=== PATIENT | female | born 1935 | race American Indian/Alaskan Native ===

== ENCOUNTER 2017-11-21 19:22 | Emergency (ER) | payer MEDICARE ==
--- NOTE | 2017-11-21 20:46 | Emergency Department Report ---
ED Syncope HPI - General Chief Complaint: Syncope Stated Complaint: LOW HEART RATE Time Seen by Provider: 11/21/17 20:21 Source: patient, family Exam Limitations: no limitations - History of Present Illness Initial Comments: Miss Nicole is a 82 years pleasant patient from assisted living, with history of dementia and hypertension in history of renal cancer in 2011 status post surgery. Patient presented to the ER for evaluation of 1 single episode of syncope happened while she was standing at a nursing station in her assisted living facility. Described by her niece that she collapsed for a few seconds in and she went back to her normal. Patient denied any headache or chest pain or shortness of breath but she is complaining of lower abdominal pain that started today after the event. She stated that they went out to eat this evening and she thinks this might be from that patient denied any fever, nausea or vomiting. No diarrhea. Timing/Prior Episodes: single episode today Precipitating Factors: Positive: none Context: standing Loss of Consciousness: brief (seconds) Current Symptoms: back to normal - Related Data Allergies/Adverse Reactions: Allergies No Known Allergies Allergy (Unverified 11/21/17 20:24) Home Medications: Ambulatory Orders Alendronate Sodium [Fosamax] 70 mg PO 1XW 11/21/17 Aspirin EC [Aspirin Enteric Coated TAB] 81 mg PO QDAY 11/21/17 Bismuth Subsalicylate [Pepto-Bismol] 262 mg PO QID 11/21/17 Docusate Sodium [Stool Softener] 100 mg PO BID PRN 11/21/17 Donepezil [Aricept] 10 mg PO QDAY 11/21/17 Fluticasone [Flonase] 1 spray NS QDAY 11/21/17 LORazepam [Ativan] 0.5 mg PO BID PRN 11/21/17 Levocetirizine Dihydrochloride 5 mg PO DAILY 11/21/17 Melatonin 5 mg PO QHS PRN 11/21/17 Naphazoline/Zinc Sulf/Glycerin [Clear Eyes Itchy Eye Rlf Drops] 1 - 2 drop OP QID 11/21/17 OXcarbazepine [Trileptal] 300 mg PO BID 11/21/17 Omeprazole 40 mg PO DAILY 11/21/17 Simvastatin 20 mg PO HS 11/21/17 amLODIPine [Norvasc] 5 mg PO DAILY 11/21/17 risperiDONE [RisperiDONE] 1 mg PO QDAY 11/21/17 ED Review of Systems ROS: Stated complaint: LOW HEART RATE Other details as noted in HPI Comment: All other systems reviewed and negative Constitutional: denies: chills, fever Respiratory: denies: cough, orthopnea, shortness of breath, SOB with exertion, SOB at rest, wheezing Cardiovascular: denies: chest pain, palpitations, dyspnea on exertion Gastrointestinal: abdominal pain. denies: nausea, vomiting, diarrhea, constipation, hematemesis, melena, hematochezia Musculoskeletal: denies: back pain Neurological: denies: headache, weakness, numbness, paresthesias, confusion, abnormal gait ED Past Medical Hx - Past Medical History Previous Medical History?: Yes Hx Hypertension: Yes Additional medical history: Dementia, alzheimers, renal Ca - Surgical History Past Surgical History?: Yes Hx Appendectomy: Yes Additional Surgical History: Kidney removed - Social History Smoking Status: Former Smoker Substance Use Type: None - Medications Home Medications: Home Medications Medication Instructions Recorded Confirmed Last Taken Type Alendronate Sodium [Fosamax] 70 mg PO 1XW 11/21/17 11/21/17 11/21/17 History Aspirin EC [Aspirin Enteric Coated 81 mg PO QDAY 11/21/17 11/21/17 11/21/17 History TAB] Bismuth Subsalicylate 262 mg PO QID 11/21/17 11/21/17 11/21/17 History [Pepto-Bismol] Docusate Sodium [Stool Softener] 100 mg PO BID PRN 11/21/17 11/21/17 Unknown History Donepezil [Aricept] 10 mg PO QDAY 11/21/17 11/21/17 11/21/17 History Fluticasone [Flonase] 1 spray NS QDAY 11/21/17 11/21/17 11/21/17 History LORazepam [Ativan] 0.5 mg PO BID PRN 11/21/17 11/21/17 Unknown History Levocetirizine Dihydrochloride 5 mg PO DAILY 11/21/17 11/21/17 11/21/17 History Melatonin 5 mg PO QHS PRN 11/21/17 11/21/17 11/20/17 History Naphazoline/Zinc Sulf/Glycerin 1 - 2 drop OP QID 02/11/21/17 11/21/17 History [Clear Eyes Itchy Eye Rlf Drops] OXcarbazepine [Trileptal] 300 mg PO BID 11/21/17 11/21/17 11/21/17 History Omeprazole 40 mg PO DAILY 11/21/17 11/21/17 11/21/17 History Simvastatin 20 mg PO HS 11/21/17 11/21/17 11/20/17 History amLODIPine [Norvasc] 5 mg PO DAILY 11/21/17 11/21/17 11/21/17 History risperiDONE [RisperiDONE] 1 mg PO QDAY 11/21/17 11/21/17 11/20/17 History ED Physical Exam - General Limitations: No Limitations General appearance: alert, in no apparent distress - Head Head exam: Present: atraumatic, normocephalic, normal inspection - Eye Eye exam: Present: normal appearance, PERRL - ENT ENT exam: Present: normal exam, normal orophraynx, mucous membranes moist - Neck Neck exam: Present: normal inspection, full ROM. Absent: tenderness, meningismus, lymphadenopathy - Respiratory Respiratory exam: Present: normal lung sounds bilaterally. Absent: respiratory distress, wheezes, rales, rhonchi, stridor, decreased breath sounds, prolonged expiratory - Cardiovascular Cardiovascular Exam: Present: regular rate, normal rhythm, normal heart sounds - GI/Abdominal GI/Abdominal exam: Present: soft, tenderness (suprapubic tenderness), normal bowel sounds. Absent: distended, guarding, rebound, rigid, organomegaly, mass, bruit, pulsatile mass, hernia - Extremities Exam Extremities exam: Present: normal inspection, full ROM, normal capillary refill. Absent: tenderness, pedal edema, joint swelling, calf tenderness - Neurological Exam Neurological exam: Present: alert, oriented X3, CN II-XII intact, normal gait - Skin Skin exam: Present: warm, intact, normal color ED Course Vital Signs 11/21/17 11/22/17 11/22/17 20:19 00:21 00:41 Temperature 98.6 F Pulse Rate 73 66 Respiratory 20 18 16 Rate Blood Pressure 161/70 121/60 [Left] O2 Sat by Pulse 97 97 97 Oximetry - Reevaluation(s) Reevaluation #1: 11/22/17 03:42 Patient stated that she is feeling much better. No other syncopal episode. Patient observed in the ER for more than 5 hours. Patient advised to follow-up with her primary care physician in the next 2-3 days and return to the ER if symptoms return. ED Medical Decision Making - Lab Data Result diagrams: 11/21/17 20:36 11/21/17 20:36 Critical care attestation.: If time is entered above; I have spent that time in minutes in the direct care of this critically ill patient, excluding procedure time. ED Disposition Clinical Impression: Syncope Disposition: DC-01 TO HOME OR SELFCARE Is pt being admited?: No Condition: Stable Instructions: Syncope (ED) Referrals: LIAM ERNANDEZ MD [Primary Care Provider] - 3-5 Days
[2017-11-21 20:56] LABS: Eosinophils # (Auto) 0.1 K/mm3 (0.0-0.4); Eosinophils % (Auto) 1.9 % (0.0-4.3); Lymphocytes # (Auto) 0.8 K/mm3 (1.2-5.4); Mean Corpuscular HGB Conc 31 % (30-34); Mean Corpuscular Hemoglobin 30 pg (28-32); Mean Corpuscular Volume 99 fl (79-97); Monocytes # (Auto) 0.6 K/mm3 (0.0-0.8); Monocytes % (Auto) 12.7 % (0.0-7.3); Platelet Count 157 K/mm3 (140-440); Red Blood Count 4.33 M/mm3 (3.65-5.03)
[2017-11-21 20:57] LABS: BUN/Creatinine Ratio 21; Blood Urea Nitrogen 29 mg/dL (7-17); Calcium 8.7 mg/dL (8.4-10.2); Hemolysis Index 24
[2017-11-21 21:05] LABS: Hematocrit 42.9 % (30.3-42.9); Hemoglobin 13.1 gm/dl (10.1-14.3)
--- NOTE | 2017-11-21 22:48 | Cat Scan Report ---
FINAL REPORT PROCEDURE: CT HEAD/BRAIN WO CON TECHNIQUE: Computerized tomography of the head was performed without contrast material. HISTORY: dizziness COMPARISON: No prior studies are available for comparison. FINDINGS: There are diffuse involutional changes, with prominence of the ventricles and the sulci. There is mild diffuse white matter low attenuation, compatible with chronic microvascular ischemic changes. There is no CT evidence of intracranial mass, hemorrhage, acute territorial infarction, or hydrocephalus. The intracranial arteries are symmetric in density. Calvarium is intact. Nonspecific scattered lucencies are seen in the skull IMPRESSION: No CT evidence of acute intracranial abnormality. Nonspecific scattered lucent lesions are seen in the calvarium
--- NOTE | 2017-11-21 23:13 | Cat Scan Report ---
FINAL REPORT PROCEDURE: CT ABDOMEN PELVIS WO CON TECHNIQUE: Computerized axial tomography of the abdomen and pelvis was performed without intravenous contrast. This study is performed without intravascular contrast material and its sensitivity for abdominal and pelvic pathology, including neoplasms, inflammation, abscess, free fluid, thrombosis, arterial dissection and infarction, is reduced compared with a contrast enhanced study. HISTORY: abdominal pain COMPARISON: No prior studies are available for comparison. FINDINGS: Visualized lower thorax: No significant abnormality. Liver: There are several scattered subcentimeter low-density lesions throughout the liver, which are not fully characterized. Spleen: Normal size and attenuation. Gallbladder and biliary system: Gallbladder is present. Pancreas: Normal. Adrenals: Normal. Kidneys: Right kidney is not visualized. There is a large left renal cyst, which measures up to 11 centimeters. There are 2 rounded hyperdense lesions in the left kidney superior pole, measuring up to 1 centimeter, likely related to hyperdense/hemorrhagic cysts. No urolithiasis. Mild upper pole caliectasis. GI tract: There is sigmoid diverticulosis, with no evidence of acute diverticulitis. There is moderate to large volume of stool in the rectosigmoid colon. No bowel obstruction or acute inflammation is seen. Lymph nodes and mesentery: Normal. Vasculature: Normal. Bladder: Normal. Reproductive organs: Uterus is not visualized. Peritoneum: No free fluid. Musculoskeletal structures: Degenerative disc changes and facet arthritic changes at L5-S1. Other: None. IMPRESSION: Moderate to large volume of stool in the rectosigmoid colon. Sigmoid diverticulosis. No acute inflammation is seen. Large left renal cyst.
[2017-11-22 03:57] VITALS: BP 144/78
== END 2017-11-22 03:58 | disposition home or self-care (01) ==
LOC: ED 19:22
DX: R55 Syncope and collapse (principal); I10 Essential (primary) hypertension; Z90.49 Acquired absence of other specified parts of digestive tract; Z87.891 Personal history of nicotine dependence
CPT/HCPCS: 36415; 70450; 74176; 80048; 82140; 84484; 85025; 93005; 93010

== ENCOUNTER 2018-12-07 17:10 | Inpatient (IN) | payer MEDICARE ==
[2018-12-07] MEDS ORDERED: ASPIRIN PO ONE (17:35)
[2018-12-07] MEDS ORDERED: ZOFRAN IV ONE (18:06)
[2018-12-07] MEDS ORDERED: MORPHINE IV ONE (18:06)
[2018-12-07] MEDS ORDERED: NITRO-BID 2% TP ONE (18:07)
--- NOTE | 2018-12-07 18:12 | Emergency Department Report ---
HPI - General Chief Complaint: Chest Pain Time Seen by Provider: 12/07/18 17:36 - HPI HPI: Room 6 The patient is an 83-year-old female presenting with a chief complaint of chest pain. The patient states for one day she has had chest pain that is sharp in nature. The patient does admit to nausea but denies vomiting or diaphoresis. The patient admits to shortness of breath with chest pain. Location: Chest Duration: One day Quality: Sharp Severity: Moderate Modifying factors: [see above] Context: [see above] Mode of transportation: [not driving] ED Past Medical Hx - Past Medical History Previous Medical History?: Yes Hx Hypertension: Yes Hx GERD: Yes Additional medical history: Dementia, alzheimers, renal Ca - Surgical History Hx Appendectomy: Yes Additional Surgical History: Kidney removed - Family History Family history: no significant - Social History Smoking Status: Never Smoker Substance Use Type: None - Medications Home Medications: Home Medications Medication Instructions Recorded Confirmed Last Taken Type Alendronate Sodium [Fosamax] 70 mg PO 1XW 11/21/17 11/21/17 11/21/17 History Aspirin EC [Aspirin Enteric Coated 81 mg PO QDAY 11/21/17 11/21/17 11/21/17 History TAB] Bismuth Subsalicylate 262 mg PO QID 11/21/17 11/21/17 11/21/17 History [Pepto-Bismol] Docusate Sodium [Stool Softener] 100 mg PO BID PRN 11/21/17 11/21/17 Unknown History Donepezil [Aricept] 10 mg PO QDAY 11/21/17 11/21/17 11/21/17 History Fluticasone [Flonase] 1 spray NS QDAY 11/21/17 11/21/17 11/21/17 History LORazepam [Ativan] 0.5 mg PO BID PRN 11/21/17 11/21/17 Unknown History Levocetirizine Dihydrochloride 5 mg PO DAILY 11/21/17 11/21/17 11/21/17 History Melatonin 5 mg PO QHS PRN 11/21/17 11/21/17 11/20/17 History Naphazoline/Zinc Sulf/Glycerin 1 - 2 drop OP QID 11/21/17 11/21/17 11/21/17 History [Clear Eyes Itchy Eye Rlf Drops] OXcarbazepine [Trileptal] 300 mg PO BID 11/21/17 11/21/17 11/21/17 History Omeprazole 40 mg PO DAILY 11/21/17 11/21/17 11/21/17 History Simvastatin 20 mg PO HS 11/21/17 11/21/17 11/20/17 History amLODIPine [Norvasc] 5 mg PO DAILY 11/21/17 11/21/17 11/21/17 History risperiDONE [RisperiDONE] 1 mg PO QDAY 11/21/17 11/21/17 11/20/17 History ED Review of Systems ROS: Stated complaint: BURNING CHEST Other details as noted in HPI Constitutional: denies: diaphoresis Eyes: denies: eye pain ENT: denies: throat pain Respiratory: shortness of breath Cardiovascular: chest pain Endocrine: no symptoms reported Gastrointestinal: nausea. denies: vomiting Musculoskeletal: denies: back pain Neurological: denies: headache Physical Exam - Physical Exam Vital Signs: Vital Signs 12/07/18 17:31 Pulse Rate 61 Respiratory 18 Rate Blood Pressure 174/73 O2 Sat by Pulse 100 Oximetry Physical Exam: GENERAL: The patient is well-developed well-nourished female lying on stretcher not appearing to be in acute distress. [] HEENT: Normocephalic. Atraumatic. Extraocular motions are intact. Patient has moist mucous membranes. NECK: Supple. Trachea midline CHEST/LUNGS: Clear to auscultation. There is no respiratory distress noted. HEART/CARDIOVASCULAR: Regular. There is no tachycardia. There is no gallop rub or murmur. ABDOMEN: Abdomen is soft, nontender. Patient has normal bowel sounds. There is no abdominal distention. SKIN: There is no rash. There is no edema. There is no diaphoresis. NEURO: The patient is awake, alert, and oriented. The patient is cooperative. The patient has normal speech MUSCULOSKELETAL: There is no evidence of acute injury. ED Course Vital Signs 12/07/18 17:31 Pulse Rate 61 Respiratory 18 Rate Blood Pressure 174/73 O2 Sat by Pulse 100 Oximetry ED Medical Decision Making - Lab Data Laboratory Tests 12/07/18 12/07/18 17:49 17:49 WBC 9.6 RBC 2.84 L Hgb 9.4 L Hct 27.6 L MCV 97 MCH 33 H MCHC 34 RDW 13.8 Plt Count 180 Lymph % (Auto) 18.0 [place] % (Auto) 11.0 H Eos % (Auto) 0.5 Baso % (Auto) 0.3 Lymph # 1.7 [place] # 1.1 H Eos # 0.0 Baso # 0.0 Seg Neutrophils % 70.2 H Seg Neutrophils # 6.7 Sodium 139 Potassium 4.4 Chloride 104.1 Carbon Dioxide 23 Anion Gap 16 BUN 23 H Creatinine 1.2 Estimated GFR 52 BUN/Creatinine Ratio 19 Glucose 81 Calcium 9.0 Troponin T < 0.010 - EKG Data -: EKG Interpreted by Me EKG shows normal: sinus rhythm Rate: normal - EKG Data When compared to previous EKG there are: previous EKG unavailable Interpretation: nonspecific ST-T wave christine (T-wave inversion in lead V2) - Radiology Data Radiology results: report reviewed (chest x-ray), image reviewed (chest x-ray) interpreted by me: Chest x-ray-no focal infiltrates, no pneumothorax [facility] [address] [place] [address] XRay Report Signed Patient: CAITLYN BOOTH MR#: [id number] 63 : 1935 Acct:[id number] Age/Sex: 83 / F ADM Date: 12/07/18 Loc: ED Attending Dr: Ordering Physician: BLESSING VARGAS MD Date of Service: 12/07/18 Procedure(s): XR chest 1V ap Accession Number(s): [id number] cc: BLESSING VARGAS MD Fluoro Time In Min utes: PROCEDURES: XR CHEST 1V AP TECHNIQUE: AP portable view of the chest. HISTORY: Chest Pain COMPARISON: None FINDINGS: Lines, tubes, and devices: N/A Lungs and pleura: Trachea is normal in position. Lungs are clear of infiltrate, pleural effusion, vascular congestion, or pneumothorax. Cardiomediastinal silhouette: Calcification of the aortic arch is noted. Cardiac silhouette is prominent in view of the AP projection. Other: Bony structures are intact. IMPRESSION: No acute cardiopulmonary process seen. This document is electronically signed by Jessie Hill MD., December 07 2018 07:03:04 PM ET T ranscribed By: [facility] Dictated By: JESSIE HILL MD Electronically Authenticated By: JESSIE HILL MD Signed Date/Time: 12/07/181904 DD/ 27 TD/TT: 12/07/181827 - Differential Diagnosis ACS, pericarditis, GERD Critical care attestation.: If time is entered above; I have spent that time in minutes in the direct care of this critically ill patient, excluding procedure time. ED Disposition Clinical Impression: Chest pain Disposition: OP ADMIT IP TO THIS HOSP Is pt being admited?: Yes Does the pt Need Aspirin: Yes Condition: Fair Instructions: Chest Pain (ED) Referrals: PRIMARY CARE, [Primary Care Provider] - 3-5 Days Time of Disposition: 19:23 (hospitalist paged (Dr Varela))
[2018-12-07 18:27] LABS: BUN/Creatinine Ratio 19; Blood Urea Nitrogen 23 mg/dL (7-17); Hemolysis Index 38
--- NOTE | 2018-12-07 19:05 | XRay Report ---
PROCEDURES: XR CHEST 1V AP TECHNIQUE: AP portable view of the chest. HISTORY: Chest Pain COMPARISON: None FINDINGS: Lines, tubes, and devices: N/A Lungs and pleura: Trachea is normal in position. Lungs are clear of infiltrate, pleural effusion, vas cular congestion, or pneumothorax. Cardiomediastinal silhouette: Calcification of the aortic arch is noted. Cardiac silhouette is promin ent in view of the AP projection. Other: Bony structures are intact. IMPRESSION: No acute cardiopulmonary process seen. This document is electronically signed by Jessie Hill MD., December 07 2018 07:03:04 PM ET
[2018-12-07 19:21] LABS: Basophils % (Auto) 0.3 % (0.0-1.8); Eosinophils % (Auto) 0.5 % (0.0-4.3); Hematocrit 27.6 % (30.3-42.9); Hemoglobin 9.4 gm/dl (10.1-14.3); Lymphocytes # (Auto) 1.7 K/mm3 (1.2-5.4); Mean Corpuscular HGB Conc 34 % (30-34); Mean Corpuscular Volume 97 fl (79-97); Monocytes # (Auto) 1.1 K/mm3 (0.0-0.8); Platelet Count 180 K/mm3 (140-440); Red Blood Count 2.84 M/mm3 (3.65-5.03); Red Cell Distribution Width 13.8 % (13.2-15.2)
[2018-12-07] MEDS ORDERED: SODIUM CHLORIDE FLUSH SYRINGE 10 ML IV PRN ×2 (20:12→20:17)
[2018-12-07] MEDS ORDERED: MORPHINE IV PRN (20:12)
[2018-12-07] MEDS ORDERED: BABY ASPIRIN PO STA (20:12)
[2018-12-07] MEDS ORDERED: ZOFRAN IV PRN (20:17)
[2018-12-07] MEDS ORDERED: TYLENOL PO PRN (20:17)
--- NOTE | 2018-12-07 20:59 | History and Physical Report ---
History of Present Illness Date of admission: 12/07/18 19:27 Chief complaint: Chest pain History of present illness: 83-year-old -Stateless female with no significant past medical history presented to the emergency department with complaints of left-sided chest pain. Pain was sharp, there are often intensity, with no radiation, associated with shortness of breath and diaphoresis. Pain started earlier this morning. Patient feeling nauseated but no vomiting. Patient's appetite is decreased. Patient denies cough, leg swelling, palpitation. REVIEW OF SYSTEMS: GENERAL: no weight change, no fatigue, no fever HEAD: no head ache EYES: no blurry vision, no acute visual loss EARS: no hearing loss, no discharge, no earache NOSE: no stuffiness, no sneezing, no discharge MOUTH, THROAT AND NECK: no bleeding gums, no sore throat, no swollen neck CARDIAC: As stated in the HPI. RESPIRATORY: no wheeze, no cough, no sputum, no hemoptysis, no asthma GI: no decreased appetite, no nausea, no vomiting, no dysphagia, no diarrhea, no constipation, no abdominal pain URINARY: no change in frequency, no urgency, no polyuria, no hematuria, no incontinence MUSCULOSKELETAL: no muscle weakness, no pain, no joint stiffness NEUROLOGIC: no loss of sensation/numbness, no tingling, no tremors, no weakness/paralysis HEMATOLOGIC: no anemia, no easy bruising SKIN: no rashes ENDOCRINE: no heat/cold intolerance, no polyuria, no polydipsia, no thyroid problems, no diabetes PSYCHIATRIC: no anxiety, no depression, no suicidal ideations Past History Past Medical History: No medical history Past Surgical History: appendectomy Social history: full code. denies: smoking, alcohol abuse, prescription drug abuse, IV drug use Family history: no significant family history Medications and Allergies Allergies Allergy/AdvReac Type Severity Reaction Status Date / Time No Known Allergies Allergy Verified 12/07/18 20:44 Home Medications Medication Instructions Recorded Confirmed Last Taken Type Alendronate Sodium [Fosamax] 70 mg PO 1XW 11/21/17 11/21/17 11/21/17 History Aspirin EC [Aspirin Enteric Coated 81 mg PO QDAY 11/21/17 11/21/17 11/21/17 History TAB] Bismuth Subsalicylate 262 mg PO QID 11/21/17 11/21/17 11/21/17 History [Pepto-Bismol] Docusate Sodium [Stool Softener] 100 mg PO BID PRN 11/21/17 11/21/17 Unknown History Donepezil [Aricept] 10 mg PO QDAY 11/21/17 11/21/17 11/21/17 History Fluticasone [Flonase] 1 spray NS QDAY 11/21/17 11/21/17 11/21/17 History LORazepam [Ativan] 0.5 mg PO BID PRN 11/21/17 11/21/17 Unknown History Levocetirizine Dihydrochloride 5 mg PO DAILY 11/21/17 11/21/17 11/21/17 History Melatonin 5 mg PO QHS PRN 11/21/17 11/21/17 11/20/17 History Naphazoline/Zinc Sulf/Glycerin 1 - 2 drop OP QID 11/21/17 11/21/17 11/21/17 History [Clear Eyes Itchy Eye Rlf Drops] OXcarbazepine [Trileptal] 300 mg PO BID 11/21/17 11/21/17 11/21/17 History Omeprazole 40 mg PO DAILY 11/21/17 11/21/17 11/21/17 History Simvastatin 20 mg PO HS 11/21/17 11/21/17 11/20/17 History amLODIPine [Norvasc] 5 mg PO DAILY 11/21/17 11/21/17 11/21/17 History risperiDONE [RisperiDONE] 1 mg PO QDAY 11/21/17 11/21/17 11/20/17 History Active Meds: Active Medications Acetaminophen (Tylenol) 650 mg PO Q4H PRN PRN Reason: Pain MILD(1-3)/Fever >100.5/BOYD Amlodipine Besylate (Norvasc) 5 mg PO QDAY JEROME Aspirin (Ecotrin) 325 mg PO QDAY JEROME Atorvastatin Calcium (Lipitor) 40 mg PO QHS JEROME Docusate Sodium (Colace) 100 mg PO BID JEROME Famotidine (Pepcid) 10 mg PO BID JEROME Morphine Sulfate (Morphine) 2 mg IV Q4H PRN PRN Reason: Chest Pain unrelieved by NTG Ondansetron HCl (Zofran) 4 mg IV Q8H PRN PRN Reason: Nausea And Vomiting Sodium Chloride (Sodium Chloride Flush Syringe 10 Ml) 10 ml IV PRN PRN PRN Reason: LINE FLUSH Sodium Chloride (Sodium Chloride Flush Syringe 10 Ml) 10 ml IV BID JEROME Exam - Physical Exam Narrative exam: Not in cardiopulmonary distress. The patient appeared well nourished and normally developed. Vital signs as documented. Head exam is unremarkable. No scleral icterus . Neck is without jugular venous distension, thyromegaly, or carotid bruits. Lungs are clear to auscultation. Cardiac exam reveals regular rate and Rhythm. First and second heart sounds normal. No murmurs, rubs or gallops. Abdominal exam reveals normal bowel sounds, no masses, no organomegaly and no aortic enlargement. Extremities are nonedematous and both femoral and pedal pulses are normal. FRONT SIGHT ATTACHER: Alert and oriented 3. No focal weakness. - Constitutional Vitals: Temp Pulse Resp BP Pulse Ox 63 10 L 187/75 98 12/07/18 19:00 12/07/18 19:00 12/07/18 19:00 12/07/18 19:00 Results - Labs CBC & Chem 7: 12/07/18 20:36 12/07/18 17:49 Labs: Laboratory Last Values WBC 3.9 K/mm3 (4.5-11.0) L 12/07/18 20:36 RBC 4.46 M/mm3 (3.65-5.03) 12/07/18 20:36 Hgb 9.4 gm/dl (10.1-14.3) L 12/07/18 17:49 Hct 27.6 % (30.3-42.9) L 12/07/18 17:49 MCV 93 fl (79-97) 12/07/18 20:36 MCH 31 pg (28-32) 12/07/18 20:36 MCHC 33 % (30-34) 12/07/18 20:36 RDW 15.1 % (13.2-15.2) 12/07/18 20:36 Plt Count 157 K/mm3 (140-440) 12/07/18 20:36 Lymph % (Auto) 33.5 % (13.4-35.0) 12/07/18 20:36 [place] % (Auto) 12.2 % (0.0-7.3) H 12/07/18 20:36 Eos % (Auto) 0.1 % (0.0-4.3) 12/07/18 20:36 Baso % (Auto) 0.4 % (0.0-1.8) 12/07/18 20:36 Lymph # 1.3 K/mm3 (1.2-5.4) 12/07/18 20:36 [place] # 0.5 K/mm3 (0.0-0.8) 12/07/18 20:36 Eos # 0.0 K/mm3 (0.0-0.4) 12/07/18 20:36 Baso # 0.0 K/mm3 (0.0-0.1) 12/07/18 20:36 Seg Neutrophils % 53.8 % (40.0-70.0) 12/07/18 20:36 Seg Neutrophils # 2.1 K/mm3 (1.8-7.7) 12/07/18 20:36 Sodium 139 mmol/L (137-145) 12/07/18 17:49 Potassium 4.4 mmol/L (3.6-5.0) 12/07/18 17:49 Chloride 104.1 mmol/L (98-107) 12/07/18 17:49 Carbon Dioxide 23 mmol/L (22-30) 12/07/18 17:49 Anion Gap 16 mmol/L 12/07/18 17:49 BUN 23 mg/dL (7-17) H 12/07/18 17:49 Creatinine 1.2 mg/dL (0.7-1.2) 12/07/18 17:49 Estimated GFR 52 ml/min 12/07/18 17:49 BUN/Creatinine Ratio 19 % 12/07/18 17:49 Glucose 81 mg/dL (65-100) 12/07/18 17:49 Calcium 9.0 mg/dL (8.4-10.2) 12/07/18 17:49 Troponin T < 0.010 ng/mL (0.00-0.029) 12/07/18 17:49 - Imaging and Cardiology EKG: image reviewed Assessment and Plan Assessment and plan: Chest pain - First set of cardiac enzymes are negative - EKG no ST elevation, + T-wave inversion - Patient will have stress test in the morning - Patient was given aspirin, morphine for pain control Hypertension - Patient started on amlodipine - We'll monitor BP and adjust medications as needed Mild anemia - We'll follow H&H DVT prophylaxis - Heparin Advance Directives: Yes VTE prophylaxis?: Chemical Plan of care discussed with patient/family: Yes
[2018-12-07 21:02] LABS: INR 0.94 (0.87-1.13)
[2018-12-07 21:13] LABS: Calcium 8.9 mg/dL (8.4-10.2); Chol/HDL Ratio 2.29 %
[2018-12-07 21:42] LABS: Hemoglobin TNR gm/dl (10.1-14.3); Red Blood Count TNR M/mm3 (3.65-5.03)
[2018-12-07 21:43] LABS: Hematocrit TNR % (30.3-42.9); Mean Corpuscular HGB Conc TNR % (30-34); Mean Corpuscular Volume TNR fl (79-97); Mean Platelet Volume TNR fl (6-12); Platelet Count TNR K/mm3 (140-440); Red Cell Distribution Width TNR % (13.2-15.2)
[2018-12-07 21:44] LABS: Lymphocytes % (Auto) TNR % (13.4-35.0); Monocytes % (Auto) TNR % (0.0-7.3)
[2018-12-07 21:45] LABS: Basophils % (Auto) TNR % (0.0-1.8); Eosinophils % (Auto) TNR % (0.0-4.3)
[2018-12-07 21:46] LABS: Lymphocytes # (Auto) TNR K/mm3 (1.2-5.4)
[2018-12-07] MEDS ORDERED: PEPCID ONE (21:51)
[2018-12-07] MEDS ORDERED: NORVASC ONE (21:51)
[2018-12-07] MEDS ORDERED: COLACE ONE (21:52)
[2018-12-07] MEDS ORDERED: HEPARIN ONE (21:52)
[2018-12-07] MEDS: HEPARIN SUB-Q SCH (21:56)
[2018-12-07] MEDS: COLACE PO SCH (21:56)
[2018-12-07] MEDS: PEPCID PO SCH (21:56)
[2018-12-07] MEDS: NORVASC PO SCH (21:56)
[2018-12-07] MEDS: SODIUM CHLORIDE FLUSH SYRINGE 10 ML IV SCH (21:56)
[2018-12-07] MEDS ORDERED: PEPCID PO SCH (22:00)
[2018-12-07 23:00] LABS: Mean Corpuscular HGB Conc 34 % (30-34); Mean Corpuscular Volume 92 fl (79-97); Platelet Count 188 K/mm3 (140-440); Red Blood Count 4.28 M/mm3 (3.65-5.03); Red Cell Distribution Width 15.2 % (13.2-15.2)
[2018-12-07 23:05] LABS: Hematocrit 39.9 % (30.3-42.9); Hemoglobin 13.5 gm/dl (10.1-14.3)
[2018-12-07 23:07] LABS: Eosinophils # (Auto) TNR K/mm3 (0.0-0.4); Monocytes # (Auto) TNR K/mm3 (0.0-0.8)
[2018-12-07 23:08] LABS: Basophils # (Auto) TNR K/mm3 (0.0-0.1)
[2018-12-08] MEDS: HEPARIN SUB-Q SCH ×3 (05:05→21:40)
[2018-12-08 06:38] LABS: Basophils % (Auto) 0.5 % (0.0-1.8); Eosinophils % (Auto) 0.2 % (0.0-4.3); Hematocrit 39.9 % (30.3-42.9); Hemoglobin 13.3 gm/dl (10.1-14.3); Lymphocytes # (Auto) 1.4 K/mm3 (1.2-5.4); Lymphocytes % (Auto) 38.5 % (13.4-35.0); Mean Corpuscular HGB Conc 33 % (30-34); Mean Corpuscular Volume 92 fl (79-97); Monocytes # (Auto) 0.4 K/mm3 (0.0-0.8); Monocytes % (Auto) 11.8 % (0.0-7.3); Platelet Count 167 K/mm3 (140-440); Red Blood Count 4.33 M/mm3 (3.65-5.03); Red Cell Distribution Width 14.9 % (13.2-15.2)
[2018-12-08 07:40] LABS: Calcium 8.9 mg/dL (8.4-10.2)
[2018-12-08] MEDS ORDERED: LEXISCAN IV ONE ×2 (08:09→09:00)
[2018-12-08] MEDS: PEPCID PO SCH ×2 (11:53→21:39)
[2018-12-08] MEDS: ECOTRIN PO SCH (11:53)
[2018-12-08] MEDS: SODIUM CHLORIDE FLUSH SYRINGE 10 ML IV SCH (11:54)
[2018-12-08] MEDS: COLACE PO SCH ×2 (11:54→21:39)
[2018-12-08] MEDS: NORVASC PO SCH (11:55)
--- NOTE | 2018-12-08 14:22 | Progress Note ---
Assessment and Plan Assessment and plan: Chest pain - First set of cardiac enzymes are negative - EKG no ST elevation, + T-wave inversion - Patient had stress test in the morning but there was technical issue and will not be read until Monday - Patient is on aspirin, morphine for pain control Hypertension - Patient started on amlodipine - We'll monitor BP and adjust medications as needed Mild anemia - We'll follow H&H - H/H is stable DVT prophylaxis -On heparin History Interval history: Patient was seen and evaluated this morning, patient is still complaining chest pain but better than admission condition. Hospitalist Physical - Physical exam Narrative exam: Not in cardiopulmonary distress. The patient appeared well nourished and normally developed. Vital signs as documented. Head exam is unremarkable. No scleral icterus . Neck is without jugular venous distension, thyromegaly, or carotid bruits. Lungs are clear to auscultation. Reproducible chest pain. Cardiac exam reveals regular rate and Rhythm. First and second heart sounds normal. No murmurs, rubs or gallops. Abdominal exam reveals normal bowel sounds, no masses, no organomegaly and no aortic enlargement. Extremities are nonedematous and both femoral and pedal pulses are normal. AUTOMATION CONSULTANT: Alert and oriented 3. No focal weakness. - Constitutional Vitals: Temp Pulse Resp BP Pulse Ox 98.5 F 62 18 140/58 96 12/08/18 04:45 12/08/18 11:55 12/08/18 04:45 12/08/18 11:55 12/08/18 04:45 Results - Labs CBC & Chem 7: 12/08/18 05:05 12/08/18 05:05 Labs: Laboratory Last Values WBC 3.6 K/mm3 (4.5-11.0) L 12/08/18 05:05 RBC 4.33 M/mm3 (3.65-5.03) 12/08/18 05:05 Hgb 13.3 gm/dl (10.1-14.3) 12/08/18 05:05 Hct 39.9 % (30.3-42.9) 12/08/18 05:05 MCV 92 fl (79-97) 12/08/18 05:05 MCH 31 pg (28-32) 12/08/18 05:05 MCHC 33 % (30-34) 12/08/18 05:05 RDW 14.9 % (13.2-15.2) 12/08/18 05:05 Plt Count 167 K/mm3 (140-440) 12/08/18 05:05 Lymph % (Auto) 38.5 % (13.4-35.0) H 12/08/18 05:05 [place] % (Auto) 11.8 % (0.0-7.3) H 12/08/18 05:05 Eos % (Auto) 0.2 % (0.0-4.3) 12/08/18 05:05 Baso % (Auto) 0.5 % (0.0-1.8) 12/08/18 05:05 Lymph # 1.4 K/mm3 (1.2-5.4) 12/08/18 05:05 [place] # 0.4 K/mm3 (0.0-0.8) 12/08/18 05:05 Eos # 0.0 K/mm3 (0.0-0.4) 12/08/18 05:05 Baso # 0.0 K/mm3 (0.0-0.1) 12/08/18 05:05 Add Manual Diff TNR 12/07/18 20:36 Seg Neutrophils % 49.0 % (40.0-70.0) 12/08/18 05:05 Seg Neutrophils # 1.8 K/mm3 (1.8-7.7) 12/08/18 05:05 PT 13.1 Sec. (12.2-14.9) 12/07/18 20:36 INR 0.94 (0.87-1.13) 12/07/18 20:36 Sodium 140 mmol/L (137-145) 12/08/18 05:05 Potassium 4.2 mmol/L (3.6-5.0) 12/08/18 05:05 Chloride 106.8 mmol/L (98-107) 12/08/18 05:05 Carbon Dioxide 23 mmol/L (22-30) 12/08/18 05:05 Anion Gap 14 mmol/L 12/08/18 05:05 BUN 18 mg/dL (7-17) H 12/08/18 05:05 Creatinine 1.1 mg/dL (0.7-1.2) 12/08/18 05:05 Estimated GFR 58 ml/min 12/08/18 05:05 BUN/Creatinine Ratio 16 % 12/08/18 05:05 Glucose 77 mg/dL (65-100) 12/08/18 05:05 Calcium 8.9 mg/dL (8.4-10.2) 12/08/18 05:05 Troponin T < 0.010 ng/mL (0.00-0.029) 12/07/18 23:14 Triglycerides 81 mg/dL (2-149) 12/07/18 20:36 Cholesterol 188 mg/dL (50-199) 12/07/18 20:36 LDL Cholesterol Direct 103 mg/dL (50-130) 12/07/18 20:36 HDL Cholesterol 82 mg/dL (40-59) H 12/07/18 20:36 Cholesterol/HDL Ratio 2.29 % 12/07/18 20:36
--- NOTE | 2018-12-09 09:58 | Progress Note ---
Assessment and Plan Assessment and plan: Chest pain - Serial troponin levels negative - Patient had stress test yesterday but there was technical issue and will not be read until Monday - Patient is on aspirin, morphine for pain control Hypertension - Controlled on amlodipine Generalized weakness -PT consulted Leukopenia -We'll recheck wbc level in a.m. DVT prophylaxis -On heparin Disp: For possible discharge tomorrow if stress test is negative History Interval history: Patient complained of generalized weakness. She denies current chest pain Hospitalist Physical - Constitutional Vitals: Temp Pulse Resp BP Pulse Ox 98.4 F 69 16 129/75 99 12/09/18 09:01 12/09/18 09:01 12/09/18 09:01 12/09/18 09:01 12/09/18 09:01 General appearance: Present: no acute distress - EENT Eyes: Present: PERRL, EOM intact ENT: hearing intact, clear oral mucosa - Neck Neck: Present: supple - Respiratory Respiratory effort: normal Respiratory: bilateral: CTA - Cardiovascular Rhythm: regular Heart Sounds: Present: S1 & S2 - Extremities Extremity abnormal: edema (in BLE) - Abdominal General gastrointestinal: soft, non-tender, non-distended, normal bowel sounds - Neurologic Neurologic: CNII-XII intact Results - Labs CBC & Chem 7: 12/08/18 05:05 12/08/18 05:05 Labs: Laboratory Last Values WBC 3.6 K/mm3 (4.5-11.0) L 12/08/18 05:05 RBC 4.33 M/mm3 (3.65-5.03) 12/08/18 05:05 Hgb 13.3 gm/dl (10.1-14.3) 12/08/18 05:05 Hct 39.9 % (30.3-42.9) 12/08/18 05:05 MCV 92 fl (79-97) 12/08/18 05:05 MCH 31 pg (28-32) 12/08/18 05:05 MCHC 33 % (30-34) 12/08/18 05:05 RDW 14.9 % (13.2-15.2) 12/08/18 05:05 Plt Count 167 K/mm3 (140-440) 12/08/18 05:05 Lymph % (Auto) 38.5 % (13.4-35.0) H 12/08/18 05:05 [place] % (Auto) 11.8 % (0.0-7.3) H 12/08/18 05:05 Eos % (Auto) 0.2 % (0.0-4.3) 12/08/18 05:05 Baso % (Auto) 0.5 % (0.0-1.8) 12/08/18 05:05 Lymph # 1.4 K/mm3 (1.2-5.4) 12/08/18 05:05 [place] # 0.4 K/mm3 (0.0-0.8) 12/08/18 05:05 Eos # 0.0 K/mm3 (0.0-0.4) 12/08/18 05:05 Baso # 0.0 K/mm3 (0.0-0.1) 12/08/18 05:05 Add Manual Diff TNR 12/07/18 20:36 Seg Neutrophils % 49.0 % (40.0-70.0) 12/08/18 05:05 Seg Neutrophils # 1.8 K/mm3 (1.8-7.7) 12/08/18 05:05 PT 13.1 Sec. (12.2-14.9) 12/07/18 20:36 INR 0.94 (0.87-1.13) 12/07/18 20:36 Sodium 140 mmol/L (137-145) 12/08/18 05:05 Potassium 4.2 mmol/L (3.6-5.0) 12/08/18 05:05 Chloride 106.8 mmol/L (98-107) 12/08/18 05:05 Carbon Dioxide 23 mmol/L (22-30) 12/08/18 05:05 Anion Gap 14 mmol/L 12/08/18 05:05 BUN 18 mg/dL (7-17) H 12/08/18 05:05 Creatinine 1.1 mg/dL (0.7-1.2) 12/08/18 05:05 Estimated GFR 58 ml/min 12/08/18 05:05 BUN/Creatinine Ratio 16 % 12/08/18 05:05 Glucose 77 mg/dL (65-100) 12/08/18 05:05 Calcium 8.9 mg/dL (8.4-10.2) 12/08/18 05:05 Troponin T < 0.010 ng/mL (0.00-0.029) 12/07/18 23:14 Triglycerides 81 mg/dL (2-149) 12/07/18 20:36 Cholesterol 188 mg/dL (50-199) 12/07/18 20:36 LDL Cholesterol Direct 103 mg/dL (50-130) 12/07/18 20:36 HDL Cholesterol 82 mg/dL (40-59) H 12/07/18 20:36 Cholesterol/HDL Ratio 2.29 % 12/07/18 20:36
[2018-12-09] MEDS: SODIUM CHLORIDE FLUSH SYRINGE 10 ML IV SCH ×3 (10:18→21:59)
[2018-12-09] MEDS: HEPARIN SUB-Q SCH ×3 (10:19→21:59)
[2018-12-09] MEDS: PEPCID PO SCH ×2 (10:19→21:59)
[2018-12-09] MEDS: COLACE PO SCH ×2 (10:19→21:59)
[2018-12-09] MEDS: ECOTRIN PO SCH (10:19)
[2018-12-09] MEDS: NORVASC PO SCH (10:21)
[2018-12-10 06:05] LABS: Hematocrit 40.6 % (30.3-42.9); Hemoglobin 13.6 gm/dl (10.1-14.3); Mean Corpuscular HGB Conc 34 % (30-34); Mean Corpuscular Volume 92 fl (79-97); Platelet Count 172 K/mm3 (140-440); Red Blood Count 4.44 M/mm3 (3.65-5.03); Red Cell Distribution Width 14.8 % (13.2-15.2)
[2018-12-10] MEDS: HEPARIN SUB-Q SCH ×2 (06:08→15:40)
[2018-12-10] MEDS: PEPCID PO SCH (09:32)
[2018-12-10] MEDS: NORVASC PO SCH (09:32)
[2018-12-10] MEDS: ECOTRIN PO SCH (09:32)
[2018-12-10] MEDS: COLACE PO SCH (09:32)
[2018-12-10] MEDS: SODIUM CHLORIDE FLUSH SYRINGE 10 ML IV SCH (09:33)
--- NOTE | 2018-12-10 16:07 | Progress Note ---
Assessment and Plan Assessment and plan: Chest pain, r/o ACS - Serial troponin levels negative - stress test done but report pending - Patient is on aspirin, morphine for pain control Hypertension - Controlled on amlodipine Generalized weakness -PT following Leukopenia -Stable DVT prophylaxis -On heparin Disp: Pt to be discharged if stress test is negative History Interval history: Patient reports feeling better today. She denies chest pain. Hospitalist Physical - Constitutional Vitals: Temp Pulse Resp BP Pulse Ox 98.3 F 60 18 118/55 96 12/10/18 10:14 12/10/18 10:15 12/10/18 10:15 12/10/18 10:15 12/10/18 10:15 General appearance: Present: no acute distress - EENT Eyes: Present: PERRL, EOM intact ENT: hearing intact, clear oral mucosa - Neck Neck: Present: supple - Respiratory Respiratory effort: normal Respiratory: bilateral: CTA - Cardiovascular Rhythm: regular Heart Sounds: Present: S1 & S2 - Extremities Extremity abnormal: edema (with varicose veins in bilateral lower extremities) - Abdominal General gastrointestinal: soft, non-tender, normal bowel sounds - Neurologic Neurologic: CNII-XII intact Results - Labs CBC & Chem 7: 12/10/18 05:45 12/08/18 05:05 Labs: Laboratory Last Values WBC 3.3 K/mm3 (4.5-11.0) L 12/10/18 05:45 RBC 4.44 M/mm3 (3.65-5.03) 12/10/18 05:45 Hgb 13.6 gm/dl (10.1-14.3) 12/10/18 05:45 Hct 40.6 % (30.3-42.9) 12/10/18 05:45 MCV 92 fl (79-97) 12/10/18 05:45 MCH 31 pg (28-32) 12/10/18 05:45 MCHC 34 % (30-34) 12/10/18 05:45 RDW 14.8 % (13.2-15.2) 12/10/18 05:45 Plt Count 172 K/mm3 (140-440) 12/10/18 05:45 Lymph % (Auto) 38.5 % (13.4-35.0) H 12/08/18 05:05 [place] % (Auto) 11.8 % (0.0-7.3) H 12/08/18 05:05 Eos % (Auto) 0.2 % (0.0-4.3) 12/08/18 05:05 Baso % (Auto) 0.5 % (0.0-1.8) 12/08/18 05:05 Lymph # 1.4 K/mm3 (1.2-5.4) 12/08/18 05:05 [place] # 0.4 K/mm3 (0.0-0.8) 12/08/18 05:05 Eos # 0.0 K/mm3 (0.0-0.4) 12/08/18 05:05 Baso # 0.0 K/mm3 (0.0-0.1) 12/08/18 05:05 Add Manual Diff TNR 12/07/18 20:36 Seg Neutrophils % 49.0 % (40.0-70.0) 12/08/18 05:05 Seg Neutrophils # 1.8 K/mm3 (1.8-7.7) 12/08/18 05:05 PT 13.1 Sec. (12.2-14.9) 12/07/18 20:36 INR 0.94 (0.87-1.13) 12/07/18 20:36 Sodium 140 mmol/L (137-145) 12/08/18 05:05 Potassium 4.2 mmol/L (3.6-5.0) 12/08/18 05:05 Chloride 106.8 mmol/L (98-107) 12/08/18 05:05 Carbon Dioxide 23 mmol/L (22-30) 12/08/18 05:05 Anion Gap 14 mmol/L 12/08/18 05:05 BUN 18 mg/dL (7-17) H 12/08/18 05:05 Creatinine 1.1 mg/dL (0.7-1.2) 12/08/18 05:05 Estimated GFR 58 ml/min 12/08/18 05:05 BUN/Creatinine Ratio 16 % 12/08/18 05:05 Glucose 77 mg/dL (65-100) 12/08/18 05:05 Calcium 8.9 mg/dL (8.4-10.2) 12/08/18 05:05 Troponin T < 0.010 ng/mL (0.00-0.029) 12/07/18 23:14 Triglycerides 81 mg/dL (2-149) 12/07/18 20:36 Cholesterol 188 mg/dL (50-199) 12/07/18 20:36 LDL Cholesterol Direct 103 mg/dL (50-130) 12/07/18 20:36 HDL Cholesterol 82 mg/dL (40-59) H 12/07/18 20:36 Cholesterol/HDL Ratio 2.29 % 12/07/18 20:36 Active Medications - Current Medications Current Medications: Generic Name Dose Route Start Last Admin Trade Name Freq PRN Reason Stop Dose Admin Acetaminophen 650 mg 12/07/18 20:17 Tylenol PO Q4H PRN Pain MILD(1-3)/Fever >100.5/BOYD Amlodipine Besylate 5 mg 12/07/18 21:00 12/10/18 09:32 Norvasc PO 5 mg QDAY JEROME Administration Aspirin 325 mg 12/08/18 10:00 12/10/18 09:32 Ecotrin PO 325 mg QDAY JEROME Administration Atorvastatin Calcium 40 mg 12/07/18 22:00 12/09/18 21:59 Lipitor PO 40 mg QHS JEROME Administration Docusate Sodium 100 mg 12/07/18 22:00 12/10/18 09:32 Colace PO 100 mg BID JEROME Administration Famotidine 10 mg 12/07/18 22:00 12/10/18 09:32 Pepcid PO 10 mg BID JEROME Administration Heparin Sodium (Porcine) 5,000 unit 12/07/18 22:00 12/10/18 15:40 Heparin SUB-Q Not Given Q8HR JEROME Morphine Sulfate 2 mg 12/07/18 20:12 Morphine IV Q4H PRN Chest Pain unrelieved by NTG Ondansetron HCl 4 mg 12/07/18 20:17 Zofran IV Q8H PRN Nausea And Vomiting Sodium Chloride 10 ml 12/07/18 20:12 Sodium Chloride Flush Syringe 10 Ml IV PRN PRN LINE FLUSH Sodium Chloride 10 ml 12/07/18 22:00 12/10/18 09:33 Sodium Chloride Flush Syringe 10 Ml IV 10 ml BID JEROME Administration
[2018-12-10 16:24] VITALS: BP 160/80
--- NOTE | 2018-12-10 17:24 | Discharge Summary ---
Providers - Providers Date of Admission: 12/07/18 19:27 Date of discharge: 12/10/18 Attending physician: SYEDA FAITH 12/07/18 Consult to Cardiac Rehabilitation [CONS] Routine Reason For Exam: Phase I 12/09/18 15:53 Physical Therapy Evaluation and Treat [CONS] Routine Comment: Reason For Exam: GENERALIZED WEAKNESS Primary care physician: LEADER ASSEMBLER Hospitalization Reason for admission: Chest pain, r/o ACS, uncontrolled hypertension Condition: Stable Pertinent studies: Chest x-ray Nuclear stress test Hospital course: Final discharge diagnosis: Chest pain, r/o ACS Uncontrolled Hypertension, improved Generalized weakness Leukopenia Hospital course: Patient was admitted and placed on chest pain pathway. For her other comorbidities, she was continued on her home medications. Serial troponin and EKG done were negative. Thereafter, she had a stress test which was later reported as negative. Post stress test, patient complained of generalized weakness for which physical therapist was consulted. Subsequently, she improved clinically and she was then deemed stable for discharge with clinic follow-up. Of note, patient's WBC level slightly trended down, this will have to be followed up by her primary care physician during clinic visit. Disposition: DC-01 TO HOME OR SELFCARE Time spent for discharge: 30 minutes Core Measure Documentation - Palliative Care Palliative Care/ Comfort Measures: Not Applicable - Core Measures Any of the following diagnoses?: none Exam - Constitutional Vitals: Temp Pulse Resp BP Pulse Ox 98.2 F 73 18 160/80 99 12/10/18 16:19 12/10/18 16:24 12/10/18 16:24 12/10/18 16:24 12/10/18 16:24 General appearance: Present: no acute distress, well-nourished - EENT Eyes: Present: PERRL, EOM intact ENT: hearing intact, clear oral mucosa - Neck Neck: Present: supple, normal ROM - Respiratory Respiratory effort: normal Respiratory: bilateral: CTA - Cardiovascular Rhythm: regular Heart Sounds: Present: S1 & S2. Absent: rub, click - Extremities Extremity abnormal: edema (in BLE with varicose veins) Peripheral Pulses: within normal limits - Abdominal General gastrointestinal: Present: soft, non-tender, non-distended, normal bowel sounds - Integumentary Integumentary: Present: clear, warm, dry - Musculoskeletal Musculoskeletal: gait normal, strength equal bilaterally - Psychiatric Psychiatric: appropriate mood/affect, intact judgment & insight - Neurologic Neurologic: CNII-XII intact, moves all extremities Plan Follow up with: PRIMARY CARE, [Primary Care Provider] - 3-5 Days
--- NOTE | 2018-12-11 17:04 | Treadmill Report ---
THALLIUM STRESS TEST LEFT VENTRICLE: Left ventricular chamber size is within normal spread. Perfusion study demonstrates homogeneous uptake of the tracer in all segments, no significant perfusion defects identified. Gated analysis demonstrates normal left ventricular systolic function, ejection fraction greater than 70%. CONCLUSION: Normal myocardial perfusion study. JOB# [id number] CA/NTS
== END 2018-12-10 19:04 | disposition home or self-care (01) | DRG 392 ==
LOC: ED 17:10 → 4A 19:27
PROVIDERS: ADMIT Internal Medicine; ATTEND Internal Medicine
DX: K21.9 Gastro-esophageal reflux disease without esophagitis (principal); R07.9 Chest pain, unspecified; I10 Essential (primary) hypertension; D72.819 Decreased white blood cell count, unspecified; F03.90 Unspecified dementia, unspecified severity, without behavioral disturbance, psychotic disturbance, mood disturbance, and anxiety; D64.9 Anemia, unspecified; Z90.49 Acquired absence of other specified parts of digestive tract; Z79.899 Other long term (current) drug therapy; Z79.82 Long term (current) use of aspirin
CPT/HCPCS: 36415; 71045; 78452; 80048; 80061; 84484; 85025; 85027; 85610; 93005; 93010; 93017; 94760; G0378; A9270-GY; A9502; J1644; J2270; J2405; J2785

== ENCOUNTER 2019-02-26 08:57 | Emergency (ER) | payer MEDICARE ==
--- NOTE | 2019-02-26 10:25 | XRay Report ---
AP CHEST: HISTORY: Cough AP view of the chest demonstrates a normal mediastinal and cardiac contour with clear lungs and normal bony and soft tissue structures. IMPRESSION: No acute process. No change since 12/07/18.
[2019-02-26 10:56] LABS: Bilirubin,Urine NEG (Negative); Blood,Urine NEG (Negative); Color,Urine Straw (Yellow); Protein,Urine <15 mg/dL mg/dL (Negative); Urobilinogen,Urine < 2.0 mg/dL (<2.0)
--- NOTE | 2019-02-26 11:38 | Emergency Department Report ---
ED General Adult HPI - General Chief complaint: Chest Pain Stated complaint: BOYD Time Seen by Provider: 02/26/19 09:41 Source: EMS Mode of arrival: Stretcher Limitations: No Limitations - History of Present Illness Initial comments: The patient presents to the emergency department from a local assisted with a chief complaint chest pain and abdominal pain. Patient is unable to quantify O described the pain. She states the pain started the day prior. Patient denies any nausea,vomiting or diarrhea. -: Sudden Location: chest, abdomen Radiation: non-radiation Severity scale (0 -10): 3 Quality: aching Consistency: constant Improves with: none Worsens with: none Associated Symptoms: denies other symptoms Treatments Prior to Arrival: none - Related Data Home Medications Medication Instructions Recorded Confirmed Last Taken Alendronate Sodium [Fosamax] 70 mg PO 1XW 11/21/17 12/07/18 11/21/17 Aspirin EC 81 mg PO QDAY 11/21/17 12/07/18 11/21/17 Bismuth Subsalicylate [Pepto 262 mg PO QID 11/21/17 12/07/18 11/21/17 Bismol] Docusate Sodium [Stool Softener] 100 mg PO BID PRN 11/21/17 12/07/18 Unknown Donepezil [Aricept] 10 mg PO QDAY 11/21/17 12/07/18 11/21/17 Fluticasone [Flonase] 1 spray NS QDAY 11/21/17 12/07/18 11/21/17 LORazepam [Ativan] 0.5 mg PO BID PRN 11/21/17 12/07/18 Unknown Levocetirizine Dihydrochloride 5 mg PO DAILY 11/21/17 12/07/18 11/21/17 Melatonin 5 mg PO QHS PRN 11/21/17 12/07/18 11/20/17 Naphazoline/Zinc Sulf/Glycerin 1 - 2 drop OP QID 11/21/17 12/07/18 11/21/17 [Clear Eyes Itchy Eye Rlf Drops] OXcarbazepine [Trileptal] 300 mg PO BID 11/21/17 12/07/18 11/21/17 Omeprazole 40 mg PO DAILY 11/21/17 12/07/18 11/21/17 Simvastatin 20 mg PO HS 11/21/17 12/07/18 11/20/17 amLODIPine [Norvasc] 5 mg PO DAILY 11/21/17 12/07/18 11/21/17 risperiDONE [RisperiDONE] 1 mg PO QDAY 11/21/17 12/07/18 11/20/17 Previous Rx's Medication Instructions Recorded Last Taken Type cephALEXin [Keflex] 500 mg PO Q6HR #28 capsule 02/26/19 Unknown Rx Allergies Allergy/AdvReac Type Severity Reaction Status Date / Time No Known Allergies Allergy Verified 12/07/18 20:44 ED Review of Systems ROS: Stated complaint: BOYD Other details as noted in HPI Comment: All other systems reviewed and negative Constitutional: denies: chills, fever Eyes: denies: eye pain, eye discharge, vision change ENT: denies: ear pain, throat pain Respiratory: denies: cough, shortness of breath, wheezing Cardiovascular: denies: chest pain, palpitations Endocrine: no symptoms reported Gastrointestinal: denies: abdominal pain, nausea, diarrhea Genitourinary: denies: urgency, dysuria, discharge Musculoskeletal: denies: back pain, joint swelling, arthralgia Skin: denies: rash, lesions Neurological: denies: headache, weakness, paresthesias Psychiatric: denies: anxiety, depression Hematological/Lymphatic: denies: easy bleeding, easy bruising ED Past Medical Hx - Past Medical History Previous Medical History?: Yes Hx Hypertension: Yes Hx GERD: Yes Hx Dementia: Yes Additional medical history: Dementia, alzheimers, renal Ca - Surgical History Past Surgical History?: Yes Hx Appendectomy: Yes Additional Surgical History: Kidney removed - Social History Smoking Status: Never Smoker Substance Use Type: None - Medications Home Medications: Home Medications Medication Instructions Recorded Confirmed Last Taken Type Alendronate Sodium [Fosamax] 70 mg PO 1XW 11/21/17 12/07/18 11/21/17 History Aspirin EC 81 mg PO QDAY 11/21/17 12/07/18 11/21/17 History Bismuth Subsalicylate [Pepto 262 mg PO QID 11/21/17 12/07/18 11/21/17 History Bismol] Docusate Sodium [Stool Softener] 100 mg PO BID PRN 11/21/17 12/07/18 Unknown History Donepezil [Aricept] 10 mg PO QDAY 11/21/17 12/07/18 11/21/17 History Fluticasone [Flonase] 1 spray NS QDAY 11/21/17 12/07/18 11/21/17 History LORazepam [Ativan] 0.5 mg PO BID PRN 11/21/17 12/07/18 Unknown History Levocetirizine Dihydrochloride 5 mg PO DAILY 11/21/17 12/07/18 11/21/17 History Melatonin 5 mg PO QHS PRN 11/21/17 12/07/18 11/20/17 History Naphazoline/Zinc Sulf/Glycerin 1 - 2 drop OP QID 11/21/17 12/07/18 11/21/17 History [Clear Eyes Itchy Eye Rlf Drops] OXcarbazepine [Trileptal] 300 mg PO BID 11/21/17 12/07/18 11/21/17 History Omeprazole 40 mg PO DAILY 11/21/17 12/07/18 11/21/17 History Simvastatin 20 mg PO HS 11/21/17 12/07/18 11/20/17 History amLODIPine [Norvasc] 5 mg PO DAILY 11/21/17 12/07/18 11/21/17 History risperiDONE [RisperiDONE] 1 mg PO QDAY 11/21/17 12/07/18 11/20/17 History cephALEXin [Keflex] 500 mg PO Q6HR #28 capsule 02/26/19 Unknown Rx ED Physical Exam - General Limitations: No Limitations General appearance: alert, in no apparent distress - Head Head exam: Present: atraumatic, normocephalic - Eye Eye exam: Present: normal appearance, PERRL, EOMI - ENT ENT exam: Present: mucous membranes moist - Neck Neck exam: Present: normal inspection - Respiratory Respiratory exam: Present: normal lung sounds bilaterally. Absent: respiratory distress - Cardiovascular Cardiovascular Exam: Present: regular rate, normal rhythm. Absent: systolic murmur, diastolic murmur, rubs, gallop - GI/Abdominal GI/Abdominal exam: Present: soft, normal bowel sounds. Absent: distended, tenderness - Extremities Exam Extremities exam: Present: normal inspection - Back Exam Back exam: Present: normal inspection - Neurological Exam Neurological exam: Present: alert, oriented X3, CN II-XII intact. Absent: motor sensory deficit - Psychiatric Psychiatric exam: Present: normal affect, normal mood - Skin Skin exam: Present: warm, dry, intact, normal color. Absent: rash ED Course Vital Signs 02/26/19 02/26/19 02/26/19 09:06 09:14 09:16 Temperature 98.6 F Pulse Rate 66 Respiratory 16 Rate Blood Pressure 178/78 Blood Pressure 178/78 [Left] O2 Sat by Pulse 100 100 100 Oximetry 02/26/19 02/26/19 02/26/19 09:30 09:45 10:00 Temperature Pulse Rate 76 68 60 Respiratory 18 13 17 Rate Blood Pressure 153/72 172/73 136/53 Blood Pressure [Left] O2 Sat by Pulse 99 98 96 Oximetry 02/26/19 02/26/19 02/26/19 10:15 10:31 10:45 Temperature Pulse Rate 73 66 57 L Respiratory 13 13 9 L Rate Blood Pressure 136/53 136/53 136/53 Blood Pressure [Left] O2 Sat by Pulse 99 100 99 Oximetry 02/26/19 02/26/19 02/26/19 11:01 11:15 11:31 Temperature Pulse Rate 59 L 63 59 L Respiratory 12 17 19 Rate Blood Pressure 167/69 167/69 179/76 Blood Pressure [Left] O2 Sat by Pulse 98 97 97 Oximetry 02/26/19 02/26/19 02/26/19 11:45 12:01 12:15 Temperature Pulse Rate 58 L 60 69 Respiratory 15 19 15 Rate Blood Pressure 179/76 189/73 189/73 Blood Pressure [Left] O2 Sat by Pulse 97 97 97 Oximetry 02/26/19 02/26/19 02/26/19 12:31 12:45 13:01 Temperature Pulse Rate 59 L 59 L 60 Respiratory 18 17 17 Rate Blood Pressure 173/85 173/85 184/78 Blood Pressure [Left] O2 Sat by Pulse 98 97 100 Oximetry 02/26/19 02/26/19 02/26/19 13:15 13:54 14:01 Temperature Pulse Rate 60 53 L Respiratory 20 11 L 13 Rate Blood Pressure 184/78 144/83 Blood Pressure [Left] O2 Sat by Pulse 100 97 96 Oximetry 02/26/19 02/26/19 02/26/19 14:27 14:31 14:45 Temperature Pulse Rate 52 L 50 L 51 L Respiratory 14 13 13 Rate Blood Pressure 144/83 Blood Pressure [Left] O2 Sat by Pulse 96 95 93 Oximetry 02/26/19 15:01 Temperature Pulse Rate 54 L Respiratory 12 Rate Blood Pressure 144/83 Blood Pressure [Left] O2 Sat by Pulse 99 Oximetry ED Medical Decision Making - Lab Data Result diagrams: 02/26/19 10:51 02/26/19 12:45 Lab Results 02/26/19 02/26/19 02/26/19 Range/Units 10:00 10:35 10:51 WBC 4.5 (4.5-11.0) K/mm3 RBC 4.50 (3.65-5.03) M/mm3 Hgb 14.1 (10.1-14.3) gm/dl Hct 42.3 (30.3-42.9) % MCV 94 (79-97) fl MCH 31 (28-32) pg MCHC 33 (30-34) % RDW 15.1 (13.2-15.2) % Plt Count 173 (140-440) K/mm3 Lymph % (Auto) 34.3 (13.4-35.0) % Bennett % (Auto) 12.7 H (0.0-7.3) % Eos % (Auto) 0.1 (0.0-4.3) % Baso % (Auto) 1.0 (0.0-1.8) % Lymph # 1.5 (1.2-5.4) K/mm3 Bennett # 0.6 (0.0-0.8) K/mm3 Eos # 0.0 (0.0-0.4) K/mm3 Baso # 0.0 (0.0-0.1) K/mm3 Add Manual Diff Complete Seg Neutrophils % 51.9 (40.0-70.0) % Seg Neutrophils # 2.3 (1.8-7.7) K/mm3 PT (12.2-14.9) Sec. INR (0.87-1.13) APTT (24.2-36.6) Sec. Sodium TNR Potassium TNR Chloride TNR Carbon Dioxide TNR Anion Gap TNR BUN TNR Creatinine TNR Estimated GFR TNR BUN/Creatinine Ratio TNR Glucose TNR Calcium TNR Total Bilirubin TNR AST TNR ALT TNR Alkaline Phosphatase TNR Troponin T TNR NT-Pro-B Natriuret Pep TNR Total Protein TNR Albumin TNR Albumin/Globulin Ratio TNR Urine Color Straw (Yellow) Urine Turbidity Clear (Clear) Urine pH 6.0 (5.0-7.0) Ur Specific [place] 1.008 (1.003-1.030) Urine Protein <15 mg/dl (Negative) mg/dL Urine Glucose (UA) Neg (Negative) mg/dL Urine Ketones Neg (Negative) mg/dL Urine Blood Neg (Negative) Urine Nitrite Neg (Negative) Urine Bilirubin Neg (Negative) Urine Urobilinogen < 2.0 (<2.0) mg/dL Ur Leukocyte Esterase Mod (Negative) Urine WBC (Auto) 6.0 (0.0-6.0) /HPF Urine RBC (Auto) 1.0 (0.0-6.0) /HPF 02/26/19 02/26/19 02/26/19 Range/Units 12:45 12:45 12:45 WBC (4.5-11.0) K/mm3 RBC (3.65-5.03) M/mm3 Hgb (10.1-14.3) gm/dl Hct (30.3-42.9) % MCV (79-97) fl MCH (28-32) pg MCHC (30-34) % RDW (13.2-15.2) % Plt Count (140-440) K/mm3 Lymph % (Auto) (13.4-35.0) % Bennett % (Auto) (0.0-7.3) % Eos % (Auto) (0.0-4.3) % Baso % (Auto) (0.0-1.8) % Lymph # (1.2-5.4) K/mm3 Bennett # (0.0-0.8) K/mm3 Eos # (0.0-0.4) K/mm3 Baso # (0.0-0.1) K/mm3 Add Manual Diff Seg Neutrophils % (40.0-70.0) % Seg Neutrophils # (1.8-7.7) K/mm3 PT 13.6 (12.2-14.9) Sec. INR 0.98 (0.87-1.13) APTT 30.8 (24.2-36.6) Sec. Sodium 139 Potassium 4.0 Chloride 105.1 Carbon Dioxide 21 L Anion Gap 17 BUN 20 H Creatinine 1.2 Estimated GFR 52 BUN/Creatinine Ratio 17 Glucose 94 Calcium 8.8 Total Bilirubin 0.20 AST 14 ALT 10 Alkaline Phosphatase 83 Troponin T < 0.010 NT-Pro-B Natriuret Pep Total Protein 6.3 Albumin 3.6 L Albumin/Globulin Ratio 1.3 Urine Color (Yellow) Urine Turbidity (Clear) Urine pH (5.0-7.0) Ur Specific [place] (1.003-1.030) Urine Protein (Negative) mg/dL Urine Glucose (UA) (Negative) mg/dL Urine Ketones (Negative) mg/dL Urine Blood (Negative) Urine Nitrite (Negative) Urine Bilirubin (Negative) Urine Urobilinogen (<2.0) mg/dL Ur Leukocyte Esterase (Negative) Urine WBC (Auto) (0.0-6.0) /HPF Urine RBC (Auto) (0.0-6.0) /HPF 02/26/19 Range/Units 14:58 WBC (4.5-11.0) K/mm3 RBC (3.65-5.03) M/mm3 Hgb (10.1-14.3) gm/dl Hct (30.3-42.9) % MCV (79-97) fl MCH (28-32) pg MCHC (30-34) % RDW (13.2-15.2) % Plt Count (140-440) K/mm3 Lymph % (Auto) (13.4-35.0) % Bennett % (Auto) (0.0-7.3) % Eos % (Auto) (0.0-4.3) % Baso % (Auto) (0.0-1.8) % Lymph # (1.2-5.4) K/mm3 Bennett # (0.0-0.8) K/mm3 Eos # (0.0-0.4) K/mm3 Baso # (0.0-0.1) K/mm3 Add Manual Diff Seg Neutrophils % (40.0-70.0) % Seg Neutrophils # (1.8-7.7) K/mm3 PT (12.2-14.9) Sec. INR (0.87-1.13) APTT (24.2-36.6) Sec. Sodium Potassium Chloride Carbon Dioxide Anion Gap BUN Creatinine Estimated GFR BUN/Creatinine Ratio Glucose Calcium Total Bilirubin AST ALT Alkaline Phosphatase Troponin T < 0.010 NT-Pro-B Natriuret Pep Total Protein Albumin Albumin/Globulin Ratio Urine Color (Yellow) Urine Turbidity (Clear) Urine pH (5.0-7.0) Ur Specific [place] (1.003-1.030) Urine Protein (Negative) mg/dL Urine Glucose (UA) (Negative) mg/dL Urine Ketones (Negative) mg/dL Urine Blood (Negative) Urine Nitrite (Negative) Urine Bilirubin (Negative) Urine Urobilinogen (<2.0) mg/dL Ur Leukocyte Esterase (Negative) Urine WBC (Auto) (0.0-6.0) /HPF Urine RBC (Auto) (0.0-6.0) /HPF - Radiology Data Radiology results: report reviewed Critical care attestation.: If time is entered above; I have spent that time in minutes in the direct care of this critically ill patient, excluding procedure time. ED Disposition Clinical Impression: Asymptomatic bacteriuria, Abdominal pain Disposition: DC-01 TO HOME OR SELFCARE Is pt being admited?: No Does the pt Need Aspirin: No Condition: Fair Instructions: Abdominal Pain (ED) Additional Instructions: return if worse Prescriptions: cephALEXin [Keflex] 500 mg PO Q6HR #28 capsule Referrals: DORIAN TURK MD [Primary Care Provider] - 3-5 Days [facility] [Provider Group] - 3-5 Days [facility] [Provider Group] - 3-5 Days
[2019-02-26 11:42] LABS: Hematocrit 42.3 % (30.3-42.9); Hemoglobin 14.1 gm/dl (10.1-14.3); Mean Corpuscular HGB Conc 33 % (30-34); Mean Corpuscular Volume 94 fl (79-97); Platelet Count 173 K/mm3 (140-440); Red Cell Distribution Width 15.1 % (13.2-15.2)
[2019-02-26 11:46] LABS: Eosinophils % (Auto) 0.1 % (0.0-4.3); Lymphocytes # (Auto) 1.5 K/mm3 (1.2-5.4); Lymphocytes % (Auto) 34.3 % (13.4-35.0); Monocytes # (Auto) 0.6 K/mm3 (0.0-0.8); Monocytes % (Auto) 12.7 % (0.0-7.3)
[2019-02-26] MEDS ORDERED: NACL 0.9% 1000 ML 1,000 ML IV ONE (11:47)
[2019-02-26 11:51] LABS: Alanine Aminotransferase TNR units/L (7-56); BUN/Creatinine Ratio TNR; Blood Urea Nitrogen TNR mg/dL (7-17); Calcium TNR mg/dL (8.4-10.2)
[2019-02-26 11:52] LABS: Albumin TNR g/dL (3.9-5); Hemolysis Index TNR
[2019-02-26] MEDS ORDERED: ZOFRAN ONE (13:13)
[2019-02-26] MEDS ORDERED: MORPHINE ONE (13:13)
[2019-02-26 13:21] LABS: Albumin 3.6 g/dL (3.9-5); Calcium 8.8 mg/dL (8.4-10.2)
[2019-02-26 13:27] LABS: INR 0.98 (0.87-1.13); Partial Thromboplastin Time 30.8 Sec. (24.2-36.6)
--- NOTE | 2019-02-26 13:49 | Cat Scan Report ---
CT ABDOMEN PELVIS WITHOUT CONTRAST: HISTORY: abdominal pain. COMPARISON: 11/21/17. TECHNIQUE: Helical CT in 1.25mm intervals without IV contrast. Sagittal and coronal reconstructions. FINDINGS: Lung bases: Borderline to mild cardiomegaly and the visualized lung bases are well aerated. Liver: Within normal limits. 1 cm cyst is noted in the anterior right hepatic lobe. Biliary system: Normal. Pancreas: Normal. Spleen: Normal. Kidneys/ureters/bladder: The right kidney is not identified suggesting right nephrectomy. Left kidney is anteriorly rotated. There is a large simple cyst in the mid left kidney measuring up to 10 cm in diameter. A 1 cm hemorrhagic cyst is noted in the superior left kidney. There is a 1 mm calyceal stone in the inferior left kidney. No ureteral stones or hydronephrosis. The bladder is unremarkable. Adrenal glands: Normal. Aorta: Moderate distal calcifications. No aneurysm. Intestines: Moderate diverticulosis of the sigmoid colon is identified. No evidence for bowel obstruction or focal inflammation. Appendix: Not identified. Pelvic viscera: Hysterectomy changes are suspected. Ascites: None. Adenopathy: None. Musculoskeletal: Mild osteopenia. No fracture or suspicious bony lesion. IMPRESSION: No acute process is identified in the abdomen or pelvis. Borderline to mild cardiomegaly. Right nephrectomy changes. Presumed hysterectomy and appendectomy. Left renal cysts and punctate nonobstructing left renal stone. Diverticulosis of the distal colon.
[2019-02-26 14:32] VITALS: BP 144/83
[2019-02-26] MEDS ORDERED: ZOFRAN IV ONE (14:51)
[2019-02-26] MEDS ORDERED: MORPHINE IV ONE (14:52)
== END 2019-02-26 17:44 | disposition home or self-care (01) ==
LOC: ED 08:57
DX: R82.71 Bacteriuria (principal); I10 Essential (primary) hypertension; K21.9 Gastro-esophageal reflux disease without esophagitis; Z79.82 Long term (current) use of aspirin; Z79.899 Other long term (current) drug therapy
CPT/HCPCS: 36415; 71045; 74176; 80053; 81001; 84484; 85025; 85610; 85730; 87086; 93005; 93010; 96374; 96375; 99285; J2270; J2405; J7030; 96361

== ENCOUNTER 2019-07-09 08:38 | Inpatient (IN) | payer MEDICARE ==
[2019-07-09] MEDS ORDERED: NACL 0.9% 1000 ML 1,000 ML IV ONE (08:59)
--- NOTE | 2019-07-09 09:09 | Emergency Department Report ---
- General Stated complaint: AMS Time Seen by Provider: 07/09/19 08:59 Source: EMS Mode of arrival: Stretcher Limitations: No Limitations - History of Present Illness Initial comments: 84 yo AA comes from the SNF today with reports of syncope. The pt states she was eating and got very weak. Pt is high functioning for her 84 years. She normally walks, keeps her room clean, and talks to her friends. She is alert and oriented to person, place, time and situation. Family reports that the pt has had sz in the past- 2 years ago. ? if true sz - not tonic clonic per daughter. Pt states she is not . Daughter is NOK and she lives out of state. Her no is [phone]. She also has a son and she dont know where he is she "put him in gods hands." Denies chest pain, SOB, or headache. Denies abd pain or dysuria. She reports she walks to commode and sometime wears a "pad." Denies fever or chills. SNF meds fosamoax omeprazole norvasc asa trileptal flonase astelin nasal spray Ca ativan PRN levucetirizine/zyzal statin aricept melatonin No known hx CVA/TIA Complaint: generalized weakness -: Sudden, minutes(s) Location: generalized Consistency: intermittent Context: other (was eating) Associated Symptoms: denies other symptoms - Related Data Home Medications Medication Instructions Recorded Confirmed Last Taken Alendronate Sodium [Fosamax] 70 mg PO 1XW 11/21/17 07/09/19 07/08/19 70 Donepezil [Aricept] 10 mg PO QDAY 11/21/17 07/09/19 07/08/19 Fluticasone [Flonase] 1 spray NS QDAY 11/21/17 07/09/19 07/08/19 1 LORazepam [Ativan] 0.5 mg PO BID PRN 11/21/17 07/09/19 07/08/19 0.5 Levocetirizine Dihydrochloride 5 mg PO DAILY 11/21/17 07/09/19 07/08/19 5 Melatonin 5 mg PO QHS PRN 11/21/17 07/09/19 07/08/19 OXcarbazepine [Trileptal] 300 mg PO BID 11/21/17 07/09/19 07/08/19 Omeprazole 40 mg PO DAILY 11/21/17 07/09/19 07/08/19 Simvastatin 20 mg PO HS 11/21/17 07/09/19 07/08/19 amLODIPine [Norvasc] 5 mg PO DAILY 11/21/17 07/09/19 07/08/19 Aspirin [Aspirin BABY CHEW TAB] 81 mg PO QDAY 07/09/19 07/09/19 07/08/19 Levocetirizine Dihydrochloride 5 mg PO QDAY 07/09/19 07/09/19 07/08/19 [Xyzal] Allergies Allergy/AdvReac Type Severity Reaction Status Date / Time No Known Allergies Allergy Verified 12/07/18 20:44 ED Review of Systems ROS: Stated complaint: AMS Other details as noted in HPI Comment: All other systems reviewed and negative ED Past Medical Hx - Past Medical History Hx Hypertension: Yes Hx CVA: No Hx Heart Attack/AMI: No Hx Congestive Heart Failure: No Hx Diabetes: No Hx Deep Vein Thrombosis: No Hx Pulmonary Embolism: No Hx GERD: Yes Hx Liver Disease: No Hx Renal Disease: Yes Hx of Cancer: Yes (renal) Hx Sickle Cell Disease: No Hx Arthritis: Yes Hx Headaches / Migraines: Yes Hx Seizures: Yes (details unknown) Hx Kidney Stones: No Hx Psychiatric Treatment: No Hx Asthma: No Hx COPD: No Hx Tuberculosis: No Hx Dementia: Yes Hx HIV: No Additional medical history: anxiety- hx bradycardia, stress test last near no ischmia - Surgical History Past Surgical History?: Yes Hx Appendectomy: Yes Additional Surgical History: Kidney removed - Family History Family history: no significant - Social History Smoking Status: Never Smoker Substance Use Type: None - Medications Home Medications: Home Medications Medication Instructions Recorded Confirmed Last Taken Type Alendronate Sodium [Fosamax] 70 mg PO 1XW 11/21/17 07/09/19 07/08/19 History 70 Donepezil [Aricept] 10 mg PO QDAY 11/21/17 07/09/19 07/08/19 History Fluticasone [Flonase] 1 spray NS QDAY 11/21/17 07/09/19 07/08/19 History 1 LORazepam [Ativan] 0.5 mg PO BID PRN 02/07/09/19 07/08/19 History 0.5 Levocetirizine Dihydrochloride 5 mg PO DAILY 11/21/17 07/09/19 07/08/19 History 5 Melatonin 5 mg PO QHS PRN 11/21/17 07/09/19 07/08/19 History OXcarbazepine [Trileptal] 300 mg PO BID 11/21/17 07/09/19 07/08/19 History Omeprazole 40 mg PO DAILY 11/21/17 07/09/19 07/08/19 History Simvastatin 20 mg PO HS 11/21/17 07/09/19 07/08/19 History amLODIPine [Norvasc] 5 mg PO DAILY 11/21/17 07/09/19 07/08/19 History Aspirin [Aspirin BABY CHEW TAB] 81 mg PO QDAY 07/09/19 07/09/19 07/08/19 History Levocetirizine Dihydrochloride 5 mg PO QDAY 07/09/19 07/09/19 07/08/19 History [Xyzal] ED Physical Exam - General Limitations: No Limitations General appearance: alert - Head Head exam: Present: normocephalic - Eye Eye exam: Present: normal appearance, PERRL, EOMI - ENT ENT exam: Present: mucous membranes moist - Neck Neck exam: Present: normal inspection - Respiratory Respiratory exam: Present: normal lung sounds bilaterally - Cardiovascular Cardiovascular Exam: Present: regular rate - GI/Abdominal GI/Abdominal exam: Present: soft, normal bowel sounds - Rectal Rectal exam: Present: deferred - Extremities Exam Extremities exam: Present: normal inspection, full ROM - Back Exam Back exam: Present: normal inspection, full ROM - Neurological Exam Neurological exam: Present: alert, oriented X3, CN II-XII intact - Expanded Neurological Exam Expanded Patient oriented to: Present: person, place, time Speech: Present: fluid speech Cranial nerves: EOM's Intact: Normal, Gag Reflex: Normal, Tongue Deviation: Normal, Nystagmus: Normal, Facial Sensation: Normal, Facial Palsy with Forehead Movement: Normal, Facial Palsy without Forehead Movement: Normal Upper motor neuron: Pronator Drift: Normal Motor strength exam: RUE: 5, LUE: 5, RLE: 5, LLE: 5 Best Eye Response (Don): (4) open spontaneously Best Motor Response ([place]): (6) obeys commands Best Verbal Response (Don): (5) oriented [place] Total: 15 - Psychiatric Psychiatric exam: Present: normal affect, normal mood - Assessment Assessment Interval: Baseline - Level of Consciousness 1a. Level of Consciousness: alert/keenly responsive - LOC Questions 1b. LOC Questions: answers both correctly - LOC Command 1c. LOC Commands: performs tasks correctly - Best Gaze 2. Best Gaze: normal - Visual 3. Visual: no visual loss - Facial Palsy 4. Facial Palsy: normal symmetrical movement - Motor Arm 5a. Motor Arm Left: no drift 5b. Motor Arm Right: no drift - Motor Leg 6a. Motor Leg Left: no drift 6b. Motor Leg Right: no drift - Limb Ataxia 7. Limb Ataxia: absent - Sensory 8. Sensory: normal - Best Language 9. Best Language: no aphasia - Dysarthria 10. Dysarthria: normal - Extinction and Inattention 11. Extinction/Inattention: no abnormality - Scoring Total Score: 0 Stroke Severity: No Stroke Symptoms ED Course Vital Signs 07/09/19 07/09/19 07/09/19 09:00 09:14 09:18 Temperature 98.5 F Pulse Rate 63 63 Respiratory 18 18 16 Rate Blood Pressure 146/70 Blood Pressure 132/65 [Left] O2 Sat by Pulse 100 98 100 Oximetry 07/09/19 07/09/19 07/09/19 12:23 14:42 15:31 Temperature 98.6 F 97.6 F Pulse Rate 62 72 60 Respiratory 18 15 18 Rate Blood Pressure 142/64 Blood Pressure 152/69 154/64 [Left] O2 Sat by Pulse 97 98 100 Oximetry - Reevaluation(s) Reevaluation #1: DISCUSSED WITH DR JOHN ED Medical Decision Making - Lab Data Result diagrams: 07/09/19 09:21 07/10/19 08:54 - EKG Data EKG shows normal: sinus rhythm Rate: normal - EKG Data When compared to previous EKG there are: no significant change Interpretation: nonspecific ST-T wave christine - Radiology Data Radiology results: report reviewed, image reviewed - Medical Decision Making Labs 07/09/19 07/09/19 07/09/19 09:21 09:21 09:21 WBC 3.7 L RBC 4.63 Hgb 14.4 H Hct 42.8 MCV 92 MCH 31 MCHC 34 RDW 14.9 Plt Count 166 Lymph % (Auto) 22.2 Green % (Auto) 9.4 H Eos % (Auto) 1.5 Baso % (Auto) 0.6 Lymph # 0.8 L Green # 0.3 Eos # 0.1 Baso # 0.0 Seg Neutrophils % 66.3 Seg Neutrophils # 2.4 Sodium 143 Potassium 4.5 Chloride 105.9 Carbon Dioxide 24 Anion Gap 18 BUN 21 H Creatinine 1.4 H Estimated GFR 43 BUN/Creatinine Ratio 15 Glucose 123 H Calcium 9.5 Total Bilirubin 0.20 AST 18 ALT 11 Alkaline Phosphatase 86 Total Creatine Kinase Troponin T < 0.010 Total Protein 6.8 Albumin 3.9 Albumin/Globulin Ratio 1.3 Urine Color Urine Turbidity Urine pH Ur Specific [place] Urine Protein Urine Glucose (UA) Urine Ketones Urine Blood Urine Nitrite Urine Bilirubin Urine Urobilinogen Ur Leukocyte Esterase Urine WBC (Auto) Urine RBC (Auto) U Epithel Cells (Auto) Urine Bacteria (Auto) Ur Transition Epith Cell Urine Mucus 07/09/19 07/09/19 09:21 10:54 WBC RBC Hgb Hct MCV MCH MCHC RDW Plt Count Lymph % (Auto) Green % (Auto) Eos % (Auto) Baso % (Auto) Lymph # Green # Eos # Baso # Seg Neutrophils % Seg Neutrophils # Sodium Potassium Chloride Carbon Dioxide Anion Gap BUN Creatinine Estimated GFR BUN/Creatinine Ratio Glucose Calcium Total Bilirubin AST ALT Alkaline Phosphatase Total Creatine Kinase 128 Troponin T Total Protein Albumin Albumin/Globulin Ratio Urine Color Yellow Urine Turbidity Slightly-cloudy Urine pH 5.0 Ur Specific [place] 1.014 Urine Protein 30 mg/dl Urine Glucose (UA) Neg Urine Ketones Neg Urine Blood Neg Urine Nitrite Neg Urine Bilirubin Neg Urine Urobilinogen < 2.0 Ur Leukocyte Esterase Mod Urine WBC (Auto) 40.0 H Urine RBC (Auto) 3.0 U Epithel Cells (Auto) 1.0 Urine Bacteria (Auto) 1+ Ur Transition Epith Cell 2 Urine Mucus Few Vital Signs 07/09/19 09:18 Temperature 98.5 F Pulse Rate 63 Respiratory 16 Rate Blood Pressure 146/70 O2 Sat by Pulse 100 Oximetry VSS HR IN 60'S IN ER HX CRYSTAL IN PAST; SHE IS ON NO RATE LOWERING MEDS 12 LEAD NAP STRESS TEST 12/11 NO ISCHEMIA TROP NEG LABS NOTED CR 1.2 IN FEBRUARY OF THIS YEAR- TODAY 1.4 XRAY NOTED UA NOTED 1L NS/ROCEPHIN FOR LIKELY INCIDENTAL UTI- SHE HAS HAD IN THE PAST; NO FEVER/CHILLS/WBC NORMAL CT NOTED NAP HX CVA/ DEMENTIA CK NEG- NO TONIC CLONIC ACTIVITY DISCUSSED WITH DR JOHN WILL ADMIT FOR PT RO CVA/TIA; SICK SINUS [address] TSERN - Differential Diagnosis RO CVA-TIA/RO SZ/ RO UTI/INFECTION/BRADYCARDIA/SICK SINUS SOURCE OF AMS Critical Care Time: Yes Critical care time in (mins) excluding proc time.: 60 Critical care attestation.: If time is entered above; I have spent that time in minutes in the direct care of this critically ill patient, excluding procedure time. Critical Care Time: 60 ED Disposition Clinical Impression: Weakness, Syncope, ED (acute kidney injury) Disposition: DC-09 OP ADMIT IP TO THIS HOSP Is pt being admited?: Yes Does the pt Need Aspirin: No Condition: Stable Time of Disposition: 12:16
--- NOTE | 2019-07-09 09:34 | XRay Report ---
CHEST 1 VIEW INDICATION: Weakness. Altered mental status. The patient passed out for about 7 minutes COMPARISON: 02/26/2019 FINDINGS: Support devices: None. Heart: Mild cardiomegaly. The aorta is ectatic but well defined. Lungs/Pleura: No acute air space or interstitial disease. Additional findings: None. IMPRESSION: Mild cardiomegaly. Lungs clear. No significant change since 02/26/2019. Signer Name: Jerrod Forte Jr, MD Signed: 07/09/2019 9:29 AM Workstation Name: [id number]
[2019-07-09 09:37] LABS: Basophils % (Auto) 0.6 % (0.0-1.8); Eosinophils # (Auto) 0.1 K/mm3 (0.0-0.4); Eosinophils % (Auto) 1.5 % (0.0-4.3); Hematocrit 42.8 % (30.3-42.9); Hemoglobin 14.4 gm/dl (10.1-14.3); Lymphocytes # (Auto) 0.8 K/mm3 (1.2-5.4); Lymphocytes % (Auto) 22.2 % (13.4-35.0); Mean Corpuscular HGB Conc 34 % (30-34); Mean Corpuscular Volume 92 fl (79-97); Monocytes # (Auto) 0.3 K/mm3 (0.0-0.8); Monocytes % (Auto) 9.4 % (0.0-7.3); Platelet Count 166 K/mm3 (140-440); Red Blood Count 4.63 M/mm3 (3.65-5.03); Red Cell Distribution Width 14.9 % (13.2-15.2)
[2019-07-09 09:53] LABS: Albumin 3.9 g/dL (3.9-5); Calcium 9.5 mg/dL (8.4-10.2)
--- NOTE | 2019-07-09 11:04 | Cat Scan Report ---
CT HEAD WITHOUT CONTRAST INDICATION : Weakness. TECHNIQUE: Axial imaging performed from the skull apex through the skull base without the use of con trast. Sagittal and coronal reformatted images. All CT scans at this location are performed using C T dose reduction for ALARA by means of automated exposure control. COMPARISON: 11/21/2017 FINDINGS: Parenchyma: No acute intracranial hemorrhage or parenchymal abnormality. Mild diffuse volume loss an d mild chronic microvascular ischemic changes in the white matter are stable since the previous exam. No evidence for acute ischemia, hemorrhage or mass on noncontrast CT. Ventricles: Ventricles are normal in size and appear symmetric. Bones: No acute osseous abnormality. Sinuses: Sinuses and mastoid air cells are clear. Soft tissues: Soft tissues including the orbits appear normal. IMPRESSION: No acute intracranial abnormality. Mild chronic white matter changes and mild volume loss which are unchanged since the comparison exam Signer Name: Jerrod Forte Jr, MD Signed: 07/09/2019 10:59 AM Workstation Name: [id number]
[2019-07-09 11:13] LABS: Bacteria,Urine 1+ /HPF (Negative); Bilirubin,Urine NEG (Negative); Blood,Urine NEG (Negative); Color,Urine Yellow (Yellow); Mucus,Urine FEW /HPF; Urobilinogen,Urine < 2.0 mg/dL (<2.0)
[2019-07-09] MEDS ORDERED: ROCEPHIN/NS 1 GM/50 ML 1 GM/50 ML BAG IV ONE (11:33)
[2019-07-09] MEDS ORDERED: ZOFRAN IV PRN (13:03)
[2019-07-09] MEDS ORDERED: PROVENTIL IH PRN (13:03)
[2019-07-09] MEDS ORDERED: SODIUM CHLORIDE FLUSH SYRINGE 10 ML IV PRN (13:03)
[2019-07-09] MEDS ORDERED: TYLENOL PO PRN (13:03)
--- NOTE | 2019-07-09 13:03 | History and Physical Report ---
History of Present Illness Chief complaint: I feel weak History of present illness: 84 YO Female with OA, Obesity, GERD, Dementia, Seizure, Renal Cancer S/P Nephrectomy presents to ED for evaluation. Pt states that she has experienced generalized weakness over the past week. Pt acknowledges decreased oral and fluid intake. Pt states that while walking outside her home she experienced progressive weakness and subsequently lost consciousness. EMS was notified by a neighbor, and upon arrival the patient was found to be in distress and transported to [facility]. Pt seen and evaluated in ED and found to have UTI complicated by Acute Kidney Injury, and volume depletion. Pt admitted to [facility] unit and initiated on IV antibiotic and IVF resuscitation therapy. Pt denies fever, chills, CP, palpitations, Trauma, BRBPR, Productive cough, skin rash, NVD, leg swelling, calf pain, prolonged travel/immobility, Individual/Family His tory of DVT/PE/Bleeding/Blood Clotting Disorders. Prior admission on 12/07/18 reviewed. All listed medication reconciled at time of admission. Past History Past Medical History: arthritis, cancer, GERD, seizures Past Surgical History: appendectomy, Other (Nephrectomy) Social history: , Lives alone. denies: smoking, alcohol abuse, prescription drug abuse Family history: hypertension Medications and Allergies Allergies Allergy/AdvReac Type Severity Reaction Status Date / Time No Known Allergies Allergy Verified 12/07/18 20:44 Home Medications Medication Instructions Recorded Confirmed Last Taken Type Alendronate Sodium [Fosamax] 70 mg PO 1XW 11/21/17 07/09/19 07/08/19 History 70 Donepezil [Aricept] 10 mg PO QDAY 11/21/17 07/09/19 07/08/19 History Fluticasone [Flonase] 1 spray NS QDAY 11/21/17 07/09/19 07/08/19 History 1 LORazepam [Ativan] 0.5 mg PO BID PRN 11/21/17 07/09/19 07/08/19 History 0.5 Levocetirizine Dihydrochloride 5 mg PO DAILY 11/21/17 07/09/19 07/08/19 History 5 Melatonin 5 mg PO QHS PRN 11/21/17 07/09/19 07/08/19 History OXcarbazepine [Trileptal] 300 mg PO BID 11/21/17 07/09/19 07/08/19 History Omeprazole 40 mg PO DAILY 11/21/17 07/09/19 07/08/19 History Simvastatin 20 mg PO HS 11/21/17 07/09/19 07/08/19 History amLODIPine [Norvasc] 5 mg PO DAILY 11/21/17 07/09/19 07/08/19 History Aspirin [Aspirin BABY CHEW TAB] 81 mg PO QDAY 07/09/19 07/09/19 07/08/19 History Levocetirizine Dihydrochloride 5 mg PO QDAY 07/09/19 07/09/19 07/08/19 History [Xyzal] Active Meds: Active Medications Sodium Chloride (Nacl 0.9% 1000 Ml) 1,000 mls @ 100 mls/hr IV BOLUS ONE Stop: 07/09/19 18:58 Last Admin: 07/09/19 10:54 Dose: 100 mls/hr Documented by: Review of Systems Constitutional: weakness, no weight loss, no weight gain, no fever, no chills Ears, nose, mouth and throat: no ear pain, no ear discharge, no tinnitis, no nose pain, no nasal congestion, no nasal discharge Breasts: no change in shape, no swelling, no mass Cardiovascular: syncope, no chest pain, no orthopnea, no rapid/irregular heart beat, no edema Respiratory: no cough, no cough with sputum, no excessive sputum Gastrointestinal: no nausea, no vomiting, no diarrhea, no constipation, no change in bowel habits, no hematemesis Genitourinary Female: no pelvic pain Rectal: no pain, no incontinence, no bleeding Musculoskeletal: no neck stiffness, no neck pain, no shooting arm pain, no arm numbness/tingling, no low back pain, no shooting leg pain Integumentary: no rash, no pruritis, no redness, no wounds, no boils Neurological: no transient paralysis, no paralysis, no parathesias, no numbness, no seizures, no syncope, no tremors, no ataxia Psychiatric: no anxiety, no memory loss, no change in sleep habits, no sleep disturbances, no insomnia, no hypersomnia, no change in appetite, no change in libido, no suicidal ideation, no disorientation Endocrine: no cold intolerance, no polyphagia, no excessive thirst, no polyuria, no nocturia, no flushing Hematologic/Lymphatic: no easy bruising, no easy bleeding, no lymphadenopathy, no lymphedema Allergic/Immunologic: no urticaria, no allergic rhinitis, no wheezing, no pe rsistent infections, no angioedema Exam - Constitutional Vitals: Temp Pulse Resp BP Pulse Ox 98.5 F 62 18 152/69 97 07/09/19 09:18 07/09/19 12:23 07/09/19 12:23 07/09/19 12:23 07/09/19 12:23 General appearance: Present: mild distress, obese - EENT Eyes: Present: PERRL ENT: hearing intact, clear oral mucosa - Neck Neck: Present: supple, normal ROM - Respiratory Respiratory effort: normal Respiratory: bilateral: CTA - Cardiovascular Heart Sounds: Present: S1 & S2. Absent: rub, click - Extremities Extremities: pulses symmetrical, No edema Peripheral Pulses: within normal limits - Abdominal General gastrointestinal: Present: soft, non-tender, non-distended, normal bowel sounds Female genitourinary: Present: normal - Integumentary Integumentary: Present: clear, warm, dry - Musculoskeletal Musculoskeletal: gait normal, strength equal bilaterally - Psychiatric Psychiatric: appropriate mood/affect, intact judgment & insight - Neurologic Neurologic: CNII-XII intact, moves all extremities Results - Labs CBC & Chem 7: 07/09/19 09:21 07/09/19 09:21 Labs: Abnormal lab results 07/09/19 07/09/19 07/09/19 Range/Units 09:21 09:21 10:54 WBC 3.7 L (4.5-11.0) K/mm3 Hgb 14.4 H (10.1-14.3) gm/dl [place] % (Auto) 9.4 H (0.0-7.3) % Lymph # 0.8 L (1.2-5.4) K/mm3 BUN 21 H (7-17) mg/dL Creatinine 1.4 H (0.7-1.2) mg/dL Glucose 123 H (65-100) mg/dL Urine WBC (Auto) 40.0 H (0.0-6.0) /HPF Assessment and Plan - Patient Problems (1) UTI (urinary tract infection) Current Visit: Yes Status: Acute Qualifiers: Encounter type: initial encounter Plan to address problem: IV antibiotic therapy, urinalysis, CBC, CMP, (2) Seizure Current Visit: Yes Status: Acute Plan to address problem: seizure precautions, supportive care, neuro checks, (3) GERD (gastroesophageal reflux disease) Current Visit: Yes Status: Acute Qualifiers: Esophagitis presence: without esophagitis Qualified Code(s): K21.9 - Gastro-esophageal reflux disease without esophagitis Plan to address problem: PPI therapy, supportive care. (4) Obesity Current Visit: Yes Status: Acute Qualifiers: Body mass index: unspecified BMI Plan to address problem: Balanced diet, increased physical activity at discharge, (5) ED (acute kidney injury) Current Visit: Yes Status: Acute Plan to address problem: IVF resuscitation therapy, monitor uop q shift, avoid nephrotoxic agents, repeat bmp in am. (6) Debility Current Visit: Yes Status: Acute Plan to address problem: PT consulted, (7) Dementia without behavioral disturbance Current Visit: Yes Status: Acute Qualifiers: Alzheimer's disease onset: unspecified onset Plan to address problem: supportive care, outpatient placement in Dementia unit, Case management cons ulted, Ativan prn (8) DVT prophylaxis Current Visit: Yes Status: Acute Plan to address problem: SCD to BLE while in bed, Prophylactic heparin
[2019-07-09] MEDS ORDERED: ATIVAN PO PRN (13:04)
[2019-07-09] MEDS ORDERED: FOSAMAX PO SCH (14:00)
[2019-07-09] MEDS: NACL 0.9% 1000 ML 1,000 ML IV SCH (16:34)
[2019-07-09] MEDS: MELATONIN PO PRN (21:57)
[2019-07-09] MEDS: PRAVACHOL PO SCH (21:58)
[2019-07-09] MEDS: SODIUM CHLORIDE FLUSH SYRINGE 10 ML IV SCH (21:58)
[2019-07-09] MEDS ORDERED: NON-FORMULARY (Simvastatin [Simvastatin] 20 MG) PO SCH (22:00)
[2019-07-09] MEDS: TRILEPTAL PO SCH (22:42)
[2019-07-10] MEDS: NACL 0.9% 1000 ML 1,000 ML IV SCH (06:27)
--- NOTE | 2019-07-10 07:51 | Progress Note ---
Assessment and Plan Assessment and plan: 84 YO Female with OA, Obesity, GERD, Dementia, Seizure, Renal Cancer S/P Nephrectomy, SNF resident presents to ED for evaluation. Pt states that she has experienced generalized weakness over the past week. Pt acknowledges decreased oral and fluid intake. Pt states that while walking outside her home she experienced progressive weakness and subsequently lost consciousness. EMS was notified by a neighbor, and upon arrival the patient was found to be in distress and transported to [facility]. Pt denies fever, chills, CP, palpitations, Trauma, BRBPR, Productive cough, skin rash, NVD, leg swelling, calf pain, prolonged travel/immobility, Individual/Family History of DVT/PE/Bleeding/Blood Clotting Disorders. Prior admission on 12/07/18 reviewed. All listed medication reconciled at time of admission. * Pt seen and evaluated in ED and found to have UTI complicated by Acute Kidney Injury, and volume depletion. * Pt admitted to [facility] unit and initiated on IV antibiotic and IVF resuscitation therapy. * Last admission in November was for chest pain and had negative stress test. * Discussed case with the daughter, Base line dementia but mental status likely aggrevated by cystitis. (1) Acute cystitis Current Visit: Yes Status: Acute Plan to address problem: IV antibiotic therapy, urinalysis, CBC, CMP, Urine culture (2) Seizure Current Visit: Yes Status: Acute Plan to address problem: seizure precautions, supportive care, neuro checks, ?Hx of seziure (3) GERD (gastroesophageal reflux disease) Current Visit: Yes Status: Acute Qualifiers: Esophagitis presence: without esophagitis Qualified Code(s): K21.9 - Gastro-esophageal reflux disease without esophagitis Plan to address problem: PPI therapy, supportive care. (4) Obesity Current Visit: Yes Status: Acute Qualifiers: Body mass index: unspecified BMI Plan to address problem: Balanced diet, increased physical activity at discharge, (5) DE (acute kidney injury) secondary to vasomotor nephropathy Current Visit: Yes Status: Acute Plan to address problem: IVF resuscitation therapy, monitor uop q shift, avoid nephrotoxic agents, repeat bmp in am. (6) Debility Current Visit: Yes Status: Acute Plan to address problem: PT consulted, (7) Dementia without behavioral disturbance Current Visit: Yes Status: Acute Qualifiers: Alzheimer's disease onset: unspecified onset Plan to address problem: supportive care, outpatient placement in Dementia unit, Case management consulted, Ativan prn (8) Acute metabolic Encephalopathy, Mildly worse than baseline. Continue to monitor (9) Syncope Obtain ECHO. Likely secondary to acute cystitis and dehydration. (10)Hx of Nephrectomy Outpatient Urology follow up (11) DVT prophylaxis Current Visit: Yes Status: Acute Plan to address problem: SCD to BLE while in bed, Prophylactic heparin History Interval history: Patient seen and examined, remains pleasantly confused, appears more confused than at baseline. Hospitalist Physical - Physical exam Narrative exam: General appearance: Present: mild distress, obese, asking same question over - EENT Eyes: Present: PERRL ENT: hearing intact, clear oral mucosa - Neck Neck: Present: supple, normal ROM - Respiratory Respiratory effort: normal Respiratory: bilateral: CTA - Cardiovascular Heart Sounds: Present: S1 & S2. Absent: rub, click - Extremities Extremities: pulses symmetrical, No edema Peripheral Pulses: within normal limits - Abdominal General gastrointestinal: Present: soft, non-tender, non-distended, normal bowel sounds Female genitourinary: Present: normal - Integumentary Integumentary: Present: clear, warm, dry - Musculoskeletal Musculoskeletal: gait normal, strength equal bilaterally - Psychiatric Psychiatric: appropriate mood/affect, intact judgment & insight - Neurologic Neurologic: CNII-XII intact, moves all extremities, some evidence of encephalopathy, could not articulate where she lives and who she leaves with - Constitutional Vitals: Temp Pulse Resp BP Pulse Ox 98 F 68 20 154/73 98 07/10/19 03:13 07/10/19 02:19 07/10/19 03:13 07/10/19 03:13 07/10/19 02:19 General appearance: Present: mild distress, obese Results - Labs CBC & Chem 7: 07/11/19 04:51 07/11/19 04:51 Labs: Laboratory Last Values WBC 3.7 K/mm3 (4.5-11.0) L 07/09/19 09:21 RBC 4.63 M/mm3 (3.65-5.03) 07/09/19 09:21 Hgb 14.4 gm/dl (10.1-14.3) H 07/09/19 09:21 Hct 42.8 % (30.3-42.9) 07/09/19 09:21 MCV 92 fl (79-97) 07/09/19 09:21 MCH 31 pg (28-32) 07/09/19 09:21 MCHC 34 % (30-34) 07/09/19 09:21 RDW 14.9 % (13.2-15.2) 07/09/19 09:21 Plt Count 166 K/mm3 (140-440) 07/09/19 09:21 Lymph % (Auto) 22.2 % (13.4-35.0) 07/09/19 09:21 Iron % (Auto) 9.4 % (0.0-7.3) H 07/09/19 09:21 Eos % (Auto) 1.5 % (0.0-4.3) 07/09/19 09:21 Baso % (Auto) 0.6 % (0.0-1.8) 07/09/19 09:21 Lymph # 0.8 K/mm3 (1.2-5.4) L 07/09/19 09:21 Iron # 0.3 K/mm3 (0.0-0.8) 07/09/19 09:21 Eos # 0.1 K/mm3 (0.0-0.4) 07/09/19 09:21 Baso # 0.0 K/mm3 (0.0-0.1) 07/09/19 09:21 Seg Neutrophils % 66.3 % (40.0-70.0) 07/09/19 09:21 Seg Neutrophils # 2.4 K/mm3 (1.8-7.7) 07/09/19 09:21 Sodium 143 mmol/L (137-145) 07/09/19 09:21 Potassium 4.5 mmol/L (3.6-5.0) 07/09/19 09:21 Chloride 105.9 mmol/L (98-107) 07/09/19 09:21 Carbon Dioxide 24 mmol/L (22-30) 07/09/19 09:21 Anion Gap 18 mmol/L 07/09/19 09:21 BUN 21 mg/dL (7-17) H 07/09/19 09:21 Creatinine 1.4 mg/dL (0.7-1.2) H 07/09/19 09:21 Estimated GFR 43 ml/min 07/09/19 09:21 BUN/Creatinine Ratio 15 % 10/15/19 09:21 Glucose 123 mg/dL (65-100) H 07/09/19 09:21 Lactic Acid 1.80 mmol/L (0.7-2.0) 07/09/19 14:48 Calcium 9.5 mg/dL (8.4-10.2) 07/09/19 09:21 Total Bilirubin 0.20 mg/dL (0.1-1.2) 07/09/19 09:21 AST 18 units/L (5-40) 07/09/19 09:21 ALT 11 units/L (7-56) 07/09/19 09:21 Alkaline Phosphatase 86 units/L (35-129) 07/09/19 09:21 Total Creatine Kinase 128 units/L (30-135) 07/09/19 09:21 Troponin T < 0.010 ng/mL (0.00-0.029) 07/09/19 09:21 Total Protein 6.8 g/dL (6.3-8.2) 07/09/19 09:21 Albumin 3.9 g/dL (3.9-5) 07/09/19 09:21 Albumin/Globulin Ratio 1.3 % 07/09/19 09:21 Urine Color Yellow (Yellow) 07/09/19 10:54 Urine Turbidity Slightly-cloudy (Clear) 07/09/19 10:54 Urine pH 5.0 (5.0-7.0) 07/09/19 10:54 Ur Specific [place] 1.014 (1.003-1.030) 07/09/19 10:54 Urine Protein 30 mg/dl mg/dL (Negative) 07/09/19 10:54 Urine Glucose (UA) Neg mg/dL (Negative) 07/09/19 10:54 Urine Ketones Neg mg/dL (Negative) 07/09/19 10:54 Urine Blood Neg (Negative) 07/09/19 10:54 Urine Nitrite Neg (Negative) 07/09/19 10:54 Urine Bilirubin Neg (Negative) 07/09/19 10:54 Urine Urobilinogen < 2.0 mg/dL (<2.0) 07/09/19 10:54 Ur Leukocyte Esterase Mod (Negative) 07/09/19 10:54 Urine WBC (Auto) 40.0 /HPF (0.0-6.0) H 07/09/19 10:54 Urine RBC (Auto) 3.0 /HPF (0.0-6.0) 07/09/19 10:54 U Epithel Cells (Auto) 1.0 /HPF (0-13.0) 07/09/19 10:54 Urine Bacteria (Auto) 1+ /HPF (Negative) 07/09/19 10:54 Ur Transition Epith Cell 2 /HPF 07/09/19 10:54 Urine Mucus Few /HPF 07/09/19 10:54 Active Medications - Current Medications Current Medications: Generic Name Dose Route Start Last Admin Trade Name Freq PRN Reason Stop Dose Admin Acetaminophen 650 mg 07/09/19 13:03 Tylenol PO Q4H PRN Pain MILD(1-3)/Fever >100.5/BOYD Albuterol 2.5 mg 07/09/19 13:03 Proventil IH Q4HRT PRN Shortness Of Breath Alendronate Sodium 70 mg 07/09/19 14:00 07/09/19 15:18 Fosamax PO 70 mg Tu JEROME Administration Amlodipine Besylate 5 mg 07/10/19 10:00 Norvasc PO DAILY JEROME Aspirin 81 mg 07/10/19 10:00 Baby Aspirin PO QDAY JEROME Donepezil HCl 10 mg 07/10/19 10:00 Aricept PO QDAY JEROME Fluticasone Propionate 50 mcg 07/10/19 10:00 Flonase NS QDAY JEROME Heparin Sodium (Porcine) 5,000 unit 07/10/19 22:00 Heparin SUB-Q Q12HR JEROME Sodium Chloride 1,000 mls @ 75 mls/hr 07/09/19 14:00 07/10/19 06:27 Nacl 0.9% 1000 Ml IV 75 mls/hr DIRECT JEROME Administration Ceftriaxone Sodium 1 gm in 50 mls @ 100 mls/hr 07/10/19 10:00 Rocephin/Ns 1 Gm/50 Ml IV Q24HR [facility] Protocol Loratadine 10 mg 07/10/19 10:00 Claritin PO DAILY JEROME Lorazepam 0.5 mg 07/09/19 13:04 Ativan PO BID PRN Agitation Melatonin 5 mg 07/09/19 13:04 07/09/19 21:57 Melatonin PO 5 mg QHS PRN Administration Insomnia Ondansetron HCl 4 mg 07/09/19 13:03 Zofran IV Q8H PRN Nausea And Vomiting Oxcarbazepine 300 mg 07/09/19 22:00 07/09/19 22:42 Trileptal PO 300 mg BID JEROME Administration Pantoprazole Sodium 40 mg 07/10/19 10:00 Protonix PO DAILY JEROME Pravastatin Sodium 40 mg 07/09/19 22:00 07/09/19 21:58 Pravachol PO 40 mg QHS JEROME Administration Sodium Chloride 10 ml 07/09/19 22:00 07/09/19 21:58 Sodium Chloride Flush Syringe 10 Ml IV 10 ml BID JEROME Administration Sodium Chloride 10 ml 07/09/19 13:03 07/09/19 16:36 Sodium Chloride Flush Syringe 10 Ml IV 10 ml PRN PRN Administration LINE FLUSH
[2019-07-10] MEDS: ROCEPHIN/NS 1 GM/50 ML 1 GM/50 ML BAG IV SCH (09:50)
[2019-07-10] MEDS: PROTONIX PO SCH (09:52)
[2019-07-10] MEDS: BABY ASPIRIN PO SCH (09:52)
[2019-07-10] MEDS: NORVASC PO SCH (09:52)
[2019-07-10] MEDS: TRILEPTAL PO SCH ×2 (09:52→22:03)
[2019-07-10] MEDS: CLARITIN PO SCH (09:52)
[2019-07-10] MEDS: ARICEPT PO SCH (09:52)
[2019-07-10] MEDS: SODIUM CHLORIDE FLUSH SYRINGE 10 ML IV SCH ×2 (09:53→21:51)
[2019-07-10] MEDS ORDERED: NON-FORMULARY (Levocetirizine Dihydrochloride [Xyzal] 5 MG) PO SCH (10:00)
[2019-07-10] MEDS ORDERED: LEVOCETIRIZINE DIHYDROCHLORIDE 5 MG PO SCH (10:00)
[2019-07-10] MEDS ORDERED: NON-FORMULARY (Omeprazole [Omeprazole] 40 MG) PO SCH (10:00)
[2019-07-10] MEDS: FLONASE NS SCH (10:50)
[2019-07-10] MEDS: MELATONIN PO PRN (21:50)
[2019-07-10] MEDS: HEPARIN SUB-Q SCH (21:50)
[2019-07-10] MEDS: PRAVACHOL PO SCH (21:51)
[2019-07-11] MEDS: NACL 0.9% 1000 ML 1,000 ML IV SCH (00:40)
[2019-07-11 05:54] LABS: Hematocrit 40.6 % (30.3-42.9); Hemoglobin 13.6 gm/dl (10.1-14.3); Mean Corpuscular HGB Conc 33 % (30-34); Mean Corpuscular Volume 93 fl (79-97); Platelet Count 156 K/mm3 (140-440); Red Blood Count 4.39 M/mm3 (3.65-5.03); Red Cell Distribution Width 14.8 % (13.2-15.2)
[2019-07-11 06:12] LABS: Calcium 8.8 mg/dL (8.4-10.2)
[2019-07-11 08:28] VITALS: BP 148/86
[2019-07-11] MEDS: PROTONIX PO SCH (09:54)
[2019-07-11] MEDS: FLONASE NS SCH (09:54)
[2019-07-11] MEDS: NORVASC PO SCH (09:54)
[2019-07-11] MEDS: HEPARIN SUB-Q SCH (09:54)
[2019-07-11] MEDS: TRILEPTAL PO SCH (09:55)
[2019-07-11] MEDS: CLARITIN PO SCH (09:55)
[2019-07-11] MEDS: ARICEPT PO SCH (09:55)
[2019-07-11] MEDS: SODIUM CHLORIDE FLUSH SYRINGE 10 ML IV SCH (09:55)
[2019-07-11] MEDS: BABY ASPIRIN PO SCH (09:55)
[2019-07-11] MEDS: ROCEPHIN/NS 1 GM/50 ML 1 GM/50 ML BAG IV SCH (09:55)
--- NOTE | 2019-07-11 11:08 | Discharge Summary ---
Providers - Providers Date of Admission: 07/09/19 13:03 Attending physician: ASHLEY MARIEE MD 07/09/19 15:48 Consult to Case Management [CONS] Routine Services Needed at Discharge: Other Notified:: DAVIN Additional Physician Instructions: Please send out for CUSTODIAL/SNF Placement as per patient request Physical Therapy Evaluation and Treat [CONS] Routine Comment: Reason For Exam: weakness Hospitalization Reason for admission: SYNCOPE Condition: Stable Hospital course: 84 YO Female with OA, Obesity, GERD, Dementia, Seizure, Renal Cancer S/P Nephrectomy, SNF resident presents to ED for evaluation. Pt states that she has experienced generalized weakness over the past week. Pt acknowledges decreased oral and fluid intake. Pt states that while walking outside her home she experienced progressive weakness and subsequently lost consciousness. EMS was notified by a neighbor, and upon arrival the patient was found to be in distress and transported to [facility]. Pt denies fever, chills, CP, palpitations, Trauma, BRBPR, Productive cough, skin rash, NVD, leg swelling, calf pain, prolonged travel/immobility, Individual/Family History of DVT/PE/Bleeding/Blood Clotting Disorders. Prior admission on 12/07/18 reviewed. All listed medication reconciled at time of admission. * Pt seen and evaluated in ED and found to have UTI complicated by Acute Kidney Injury, and volume depletion. * Pt admitted to [facility] unit and initiated on IV antibiotic and IVF resuscitation therapy. * Last admission in November was for chest pain and had negative stress test. * Discussed case with the daughter, Base line dementia but mental status likely aggravated by cystitis. * This morning, patients mental status improved, appears to her baseline, she dressed her self * cultures showed no growth. * urology follow up placed per patients daughter request * Echo shows EF of 55-60% (1) Acute cystitis (2) Seizure (3) GERD (gastroesophageal reflux disease) (4) Obesity (5) ED (acute kidney injury) secondary to vasomotor nephropathy-Resolved (6) Debility (7) Dementia without behavioral disturbance (8) Acute metabolic Encephalopathy, -Secondary to UTI, back to baseline (9) Syncope (10)Hx of Nephrectomy Disposition: DC/[place]-03 SNF W [facility] Time spent for discharge: 35 mins Core Measure Documentation - Palliative Care Palliative Care/ Comfort Measures: Not Applicable - Core Measures Any of the following diagnoses?: none Exam - Physical Exam Narrative exam: General appearance: Present: resting comfortably, obese, - EENT Eyes: Present: PERRL ENT: hearing intact, clear oral mucosa - Neck Neck: Present: supple, normal ROM - Respiratory Respiratory effort: normal Respiratory: bilateral: CTA - Cardiovascular Heart Sounds: Present: S1 & S2. Absent: rub, click - Extremities Extremities: pulses symmetrical, No edema Peripheral Pulses: within normal limits - Abdominal General gastrointestinal: Present: soft, non-tender, non-distended, normal bowel sounds Female genitourinary: Present: normal - Integumentary Integumentary: Present: clear, warm, dry - Musculoskeletal Musculoskeletal: gait normal, strength equal bilaterally - Psychiatric Psychiatric: appropriate mood/affect, intact judgment & insight - Neurologic Neurologic: CNII-XII intact, moves all extremities, - Constitutional Vitals: Temp Pulse Resp BP Pulse Ox 97.4 F L 79 20 148/86 97 07/11/19 07:49 07/11/19 10:00 07/11/19 07:49 07/11/19 07:49 07/11/19 07:49 Plan Activity: advance as tolerated, fall precautions Diet: low fat Special Instructions: record daily weights, record daily BP diary Follow up with: DEANNE GARCIA [Other] - 7 Days NATTY ANDERSON MD [Staff Physician] - 7 Days Prescriptions: Amoxicillin/K Clav Tab [Augmentin 500 MG TAB] 1 each PO Q12HR #4 tablet
== END 2019-07-11 15:00 | disposition home or self-care (01) | DRG 682 ==
LOC: ED 08:38 → 2B-ACE 13:03
PROVIDERS: ADMIT Internal Medicine; ATTEND Internal Medicine
DX: N17.0 Acute kidney failure with tubular necrosis (principal); G93.41 Metabolic encephalopathy; N30.00 Acute cystitis without hematuria; K21.9 Gastro-esophageal reflux disease without esophagitis; R55 Syncope and collapse; M19.90 Unspecified osteoarthritis, unspecified site; E66.9 Obesity, unspecified; F03.90 Unspecified dementia, unspecified severity, without behavioral disturbance, psychotic disturbance, mood disturbance, and anxiety; G43.909 Migraine, unspecified, not intractable, without status migrainosus; F41.9 Anxiety disorder, unspecified; R56.9 Unspecified convulsions; Z85.528 Personal history of other malignant neoplasm of kidney; Z68.33 Body mass index [BMI] 33.0-33.9, adult; Z90.5 Acquired absence of kidney; Z90.49 Acquired absence of other specified parts of digestive tract; Z82.49 Family history of ischemic heart disease and other diseases of the circulatory system; Z79.82 Long term (current) use of aspirin; Z79.899 Other long term (current) drug therapy
CPT/HCPCS: 36415; 70450; 71045; 80048; 80053; 81001; 82140; 82550; 82565; 84484; 84520; 85025; 85027; 87040; 87086; 87116; 93005; 93010; 93306; 94640; 96374; G0378; A9270-GY; J0696; J1644; J7030

== ENCOUNTER 2019-09-18 15:42 | Emergency (ER) | payer MEDICARE | END 2019-09-18 19:36 | disposition home or self-care (01) | LOC: ED 15:42 ==

== ENCOUNTER 2020-12-14 09:14 | Emergency (ER) | payer MEDICARE ==
--- NOTE | 2020-12-14 10:03 | Emergency Department Report ---
ED General Adult HPI - General Stated complaint: BACK PAIN Time Seen by Provider: 12/14/20 09:58 - History of Present Illness Initial comments: Patient is an 85-year-old female brought to the emergency department for evaluation of possible altered mental status versus fall. Patient's daughter contacted via telephone, states patient called her in the middle of the night upset that she was not given her medicine, patient's daughter suspects that patient did receive her medicine but had trouble sleeping. Staff at care facility was concerned patient may have fallen as she was complaining of low back pain. Patient herself states that she is "sore all over" without obvious focal injury. - Related Data Home Medications Medication Instructions Recorded Confirmed Last Taken Alendronate Sodium [Fosamax] 70 mg PO 1XW 11/21/17 07/09/19 07/08/19 70 Fluticasone [Flonase] 1 spray NS QDAY 11/21/17 07/09/19 07/08/19 1 LORazepam [Ativan] 0.5 mg PO BID PRN 11/21/17 07/09/19 07/08/19 0.5 Levocetirizine Dihydrochloride 5 mg PO DAILY 11/21/17 07/09/19 07/08/19 5 Melatonin 5 mg PO QHS PRN 11/21/17 07/09/19 07/08/19 OXcarbazepine [Trileptal] 300 mg PO BID 11/21/17 07/09/19 07/08/19 Omeprazole 40 mg PO DAILY 11/21/17 07/09/19 07/08/19 Simvastatin 20 mg PO HS 11/21/17 07/09/19 07/08/19 amLODIPine 5 mg PO DAILY 11/21/17 07/09/19 07/08/19 donepeziL [Aricept] 10 mg PO QDAY 11/21/17 07/09/19 07/08/19 Aspirin [Aspirin BABY CHEW TAB] 81 mg PO QDAY 07/09/19 07/09/19 07/08/19 Previous Rx's Medication Instructions Recorded Last Taken Type Amoxicillin/K Clav Tab [Augmentin 1 each PO Q12HR #4 tablet 07/11/19 Unknown Rx 500 MG TAB] HYDROcodone/APAP 5-325 [[place] 1 each PO Q6HR PRN #10 tablet 09/18/19 Unknown Rx 5/325] Allergies Allergy/AdvReac Type Severity Reaction Status Date / Time No Known Allergies Allergy Verified 09/18/19 15:45 ED Review of Systems ROS: Stated complaint: BACK PAIN Other details as noted in HPI Comment: All other systems reviewed and negative ED Past Medical Hx - Past Medical History Hx Hypertension: Yes Hx CVA: No Hx Heart Attack/AMI: No Hx Congestive Heart Failure: No Hx Diabetes: No Hx Deep Vein Thrombosis: No Hx Pulmonary Embolism: No Hx GERD: Yes Hx Liver Disease: No Hx Renal Disease: Yes Hx Sickle Cell Disease: No Hx Arthritis: Yes Hx Headaches / Migraines: Yes Hx Seizures: Yes (details unknown) Hx Kidney Stones: No Hx Psychiatric Treatment: No Hx Asthma: No Hx COPD: No Hx Tuberculosis: No Hx Dementia: Yes Hx HIV: No Additional medical history: anxiety- hx bradycardia, stress test last near no i schmia - Surgical History Hx Appendectomy: Yes Additional Surgical History: Kidney removed - Social History Smoking Status: Never Smoker Substance Use Type: None - Medications Home Medications: Home Medications Medication Instructions Recorded Confirmed Last Taken Type Alendronate Sodium [Fosamax] 70 mg PO 1XW 11/21/17 07/09/19 07/08/19 History 70 Fluticasone [Flonase] 1 spray NS QDAY 11/21/17 07/09/19 07/08/19 History 1 LORazepam [Ativan] 0.5 mg PO BID PRN 11/21/17 07/09/19 07/08/19 History 0.5 Levocetirizine Dihydrochloride 5 mg PO DAILY 11/21/17 07/09/19 07/08/19 History 5 Melatonin 5 mg PO QHS PRN 11/21/17 07/09/19 07/08/19 History OXcarbazepine [Trileptal] 300 mg PO BID 11/21/17 07/09/19 07/08/19 History Omeprazole 40 mg PO DAILY 11/21/17 07/09/19 07/08/19 History Simvastatin 20 mg PO HS 11/21/17 07/09/19 07/08/19 History amLODIPine 5 mg PO DAILY 11/21/17 07/09/19 07/08/19 History donepeziL [Aricept] 10 mg PO QDAY 11/21/17 07/09/19 07/08/19 History Aspirin [Aspirin BABY CHEW TAB] 81 mg PO QDAY 07/09/19 07/09/19 07/08/19 History Amoxicillin/K Clav Tab [Augmentin 1 each PO Q12HR #4 tablet 07/11/19 Unknown Rx 500 MG TAB] HYDROcodone/APAP 5-325 [[place] 1 each PO Q6HR PRN #10 tablet 09/18/19 Unknown Rx 5/325] ED Physical Exam - General Limitations: Other (dementia) General appearance: alert, in no apparent distress - Head Head exam: Present: atraumatic - Eye Eye exam: Present: normal appearance - ENT ENT exam: Present: normal exam - Neck Neck exam: Present: normal inspection - Respiratory Respiratory exam: Present: normal lung sounds bilaterally - Cardiovascular Cardiovascular Exam: Present: regular rate - GI/Abdominal GI/Abdominal exam: Present: soft - Back Exam Back exam: Present: other (Bilateral paralumbar spasm and tenderness) - Neurological Exam Neurological exam: Present: alert, CN II-XII intact - Psychiatric Psychiatric exam: Present: normal affect, normal mood ED Course Vital Signs 12/14/20 12/14/20 12/14/20 09:30 11:46 12:00 Temperature 98.0 F Pulse Rate 77 70 79 Respiratory 17 18 21 Rate Blood Pressure 208/78 169/94 197/86 O2 Sat by Pulse 97 94 98 Oximetry 12/14/20 12:16 Temperature Pulse Rate 82 Respiratory 12 Rate Blood Pressure 185/99 O2 Sat by Pulse 97 Oximetry - Reevaluation(s) Reevaluation #1: 12/14/20 13:57 Initial x-rays unclear if patient has hip fracture versus spinal fracture, CT abdomen pelvis noncontrast ordered. Morphine ordered, however, withheld as patient sleeping comfortably in ER stretcher. Upon awakening, patient no longer complains of pain, now alert oriented and able to communicate. Patient is ambulatory to ER with minimal assistance. Patient's daughter contacted, case discussed, results discussed at length, notes patient usually uses walker to ambulate. Blood pressure improving spontaneously. 12/14/20 13:57 ED Medical Decision Making - Lab Data Result diagrams: 12/14/20 10:31 12/14/20 10:31 Labs 12/14/20 12/14/20 12/14/20 10:31 10:31 12:28 WBC 5.8 RBC 4.46 Hgb 13.8 Hct 41.2 MCV 92 MCH 31 MCHC 33 RDW 14.6 Plt Count 155 Lymph % (Auto) 19.6 [place] % (Auto) 9.4 H Eos % (Auto) 0.4 Baso % (Auto) 0.5 Lymph # (Auto) 1.1 L [place] # (Auto) 0.5 Eos # (Auto) 0.0 Baso # (Auto) 0.0 Seg Neutrophils % 70.1 H Seg Neutrophils # 4.1 Sodium 142 Potassium 4.2 Chloride 108.0 H Carbon Dioxide 24 Anion Gap 14 BUN 29 H Creatinine 1.4 H Estimated GFR 43 BUN/Creatinine Ratio 21 Glucose 94 Calcium 9.2 Total Bilirubin 0.30 AST 22 ALT 11 Alkaline Phosphatase 92 Troponin T < 0.010 Total Protein 6.9 Albumin 3.9 Albumin/Globulin Ratio 1.3 Urine Color Yellow Urine Turbidity Clear Urine pH 6.0 Ur Specific [place] 1.011 Urine Protein <15 mg/dl Urine Glucose (UA) Neg Urine Ketones Neg Urine Blood Neg Urine Nitrite Neg Urine Bilirubin Neg Urine Urobilinogen < 2.0 Ur Leukocyte Esterase Neg Urine WBC (Auto) 1.0 Urine RBC (Auto) < 1.0 Vital Signs 12/14/20 12/14/20 12/14/20 09:30 11:46 12:00 Temperature 98.0 F Pulse Rate 77 70 79 Respiratory 17 18 21 Rate Blood Pressure 208/78 169/94 197/86 O2 Sat by Pulse 97 94 98 Oximetry 12/14/20 12:16 Temperature Pulse Rate 82 Respiratory 12 Rate Blood Pressure 185/99 O2 Sat by Pulse 97 Oximetry - EKG Data -: EKG Interpreted by Me (Sinus rhythm at 71, no ST-T changes, normal QRS) Critical care attestation.: If time is entered above; I have spent that time in minutes in the direct care of this critically ill patient, excluding procedure time. ED Disposition Clinical Impression: Altered mental status, Low back ache Disposition: -01 TO HOME OR SELFCARE Is pt being admited?: No Condition: Stable Instructions: Acute Back Pain, Adult Referrals: PRIMARY CARE, [Primary Care Provider] - 3-5 Days
--- NOTE | 2020-12-14 10:42 | Cat Scan Report ---
CT HEAD WITHOUT CONTRAST INDICATION / CLINICAL INFORMATION: Altered Mental Status. TECHNIQUE: Axial imaging performed from the skull apex through the skull base without the use of cont rast. Sagittal and coronal reformatted images. All CT scans at this location are performed using CT dose reduction for ALARA by means of automated exposure control. COMPARISON: 07/09/2019. FINDINGS: CEREBRAL PARENCHYMA: No acute parenchymal abnormality. Mild to moderate hypoattenuation in the white matter is unchanged and consistent with chronic microvascular ischemic changes. No chronic infarct is appreciated. HEMORRHAGE: None. EXTRA-AXIAL SPACES: Normal in size and morphology for the patient's age. VENTRICULAR SYSTEM: Normal in size and morphology for the patient's age. MIDLINE SHIFT OR HERNIATION: None. 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 CALVARIUM: No significant abnormality. ORBITS: Normal as visualized. PARANASAL SINUSES / MASTOID AIR CELLS: Normal as visualized. SOFT TISSUES of HEAD: No significant abnormality. ADDITIONAL FINDINGS: None. IMPRESSION: No acute intracranial abnormality. Chronic findings as described which are unchanged since 07/09/2019 . Signer Name: Jerrod Forte Jr, MD Signed: 12/14/2020 10:38 AM Workstation Name: [id number]
--- NOTE | 2020-12-14 10:47 | XRay Report ---
XR chest 1V ap INDICATION / CLINICAL INFORMATION: Altered Mental Status. COMPARISON: 07/09/2019 FINDINGS: SUPPORT DEVICES: None. HEART /PULMONARY VASCULATURE: Stable cardiomegaly. LUNGS / PLEURA: No significant pulmonary or pleural abnormality. No pneumothorax. ADDITIONAL FINDINGS: Aorta is again noted to be ectatic and tortuous. IMPRESSION: Stable cardiomegaly. No evidence of CHF or other acute chest process. Signer Name: Steve Broussard MD Signed: 12/14/2020 10:42 AM Workstation Name: [id number]
[2020-12-14 10:48] LABS: Basophils % (Auto) 0.5 % (0.0-1.8); Eosinophils % (Auto) 0.4 % (0.0-4.3); Hematocrit 41.2 % (30.3-42.9); Hemoglobin 13.8 gm/dl (10.1-14.3); Lymphocytes # (Auto) 1.1 K/mm3 (1.2-5.4); Lymphocytes % (Auto) 19.6 % (13.4-35.0); Mean Corpuscular HGB Conc 33 % (30-34); Mean Corpuscular Volume 92 fl (79-97); Monocytes # (Auto) 0.5 K/mm3 (0.0-0.8); Monocytes % (Auto) 9.4 % (0.0-7.3); Platelet Count 155 K/mm3 (140-440); Red Blood Count 4.46 M/mm3 (3.65-5.03); Red Cell Distribution Width 14.6 % (13.2-15.2)
--- NOTE | 2020-12-14 11:42 | XRay Report ---
Pelvis one view INDICATION: Trauma FINDINGS: Left femoral head is well-seated in the acetabulum. The superior and inferior pubic rami ap pear intact. Mild irregular appearance the right hip however this may be due to technique and positio nal. Sacrum appears normal. IMPRESSION: Mild irregularity in appearance of the right hip. Right hip radiographs are recommended if there is r ight hip pain. Lumbar spine 3 views INDICATION: Injury FINDINGS: Mild irregularity of the superior endplate of the L2mild wedging of T12-L1. Facet degenerat favian changes seen throughout. Visualized sacrum appears normal. If there is concern for acute fracture MRI could be performed. Signer Name: Eliseo Bay MD Signed: 12/14/2020 11:38 AM Workstation Name: [id number]
[2020-12-14 11:46] LABS: Alanine Aminotransferase 11 units/L (7-56); Albumin 3.9 g/dL (3.9-5); BUN/Creatinine Ratio 21; Blood Urea Nitrogen 29 mg/dL (7-17); Calcium 9.2 mg/dL (8.4-10.2); Hemolysis Index 37
[2020-12-14] MEDS ORDERED: MORPHINE 2 MG/1 ML INJ IV ONE (11:57)
--- NOTE | 2020-12-14 12:58 | Cat Scan Report ---
CT ABDOMEN AND PELVIS WITHOUT CONTRAST HISTORY: MAIN, abdominal pain COMPARISON: 02/26/2019 TECHNIQUE: Axial CT images were obtained through the abdomen and pelvis without IV contrast. Sagittal and coronal reformatted images. All CT scans at this location are performed using CT dose reduction for ALARA by means of automated exposure control. FINDINGS: CT ABDOMEN: Lung Bases: Normal heart size. Small hiatal hernia. The visualized lung bases are clear. Liver: No significant abnormality. Biliary: No significant abnormality. Spleen: No significant abnormality. Unenlarged. Pancreas: No significant abnormality. Adrenals: No significant abnormality. 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 The left kidney is anteriorly rotated. A large 10-11 cm cyst near mid pole is unchanged. There appears to be mild left hydronephrosis which is not significantly changed since the previous exam. Calyceal dilatat ion may be secondary to extrinsic compression from the large left renal cyst. Lymphatics: No lymphadenopathy. Vasculature: Mild diffuse aortic and iliac calcifications. No aneurysm. Bowel/Peritoneum: Sigmoid diverticulosis is again noted. No evidence for obstruction or acute inflamm ation. The appendix is not confidently identified. CT PELVIS: : Hysterectomy changes. The bladder and distal ureters are unremarkable. Osseous Structures: Mild lumbar spondylosis. No acute bony injury is detected. Additional Findings: None IMPRESSION: No acute injury is appreciated on noncontrast CT. Absent right kidney, see above. Mild left hydronephrosis is suspected which is unchanged. This may be secondary to a large left renal cyst near mid pole. UPJ stenosis or obstruction could also be considered. Sigmoid diverticulosis. Hysterectomy. Signer Name: Jerrod Forte Jr, MD Signed: 12/14/2020 12:53 PM Workstation Name: [id number]
[2020-12-14 13:25] LABS: Bilirubin,Urine NEG (Negative); Blood,Urine NEG (Negative); Color,Urine Yellow (Yellow); Protein,Urine <15 mg/dL mg/dL (Negative); RBC,Urine < 1.0 /HPF (0.0-6.0); Urobilinogen,Urine < 2.0 mg/dL (<2.0)
[2020-12-14 14:46] VITALS: BP 183/85
--- NOTE | 2020-12-17 10:54 | Electrocardiograph Report ---
[facility] Test Date: 2020-12-14 Test Time: 11:02:24 Pat Name: CAITLYN BOOTH Department: Room: Gender: F Stock Handler Floorperson: HERSON : [id number] Requested By: LIOR MART Order Number: [id number] Reading MD: Kishor Eddy Measurements Intervals [place] Rate: 71 P: 44 [place]: 173 QRS: 4 QRSD: 97 T: 45 QT: 427 QTc: 465 Interpretive Statements Sinus rhythm Probable left atrial enlargement No previous ECG available for comparison Electronically Signed On 12-17-2020 7:54:18 PDT by Kishor Eddy
== END 2020-12-14 15:40 | disposition home or self-care (01) ==
LOC: ED 09:14
DX: R41.82 Altered mental status, unspecified (principal); M54.9 Dorsalgia, unspecified; I10 Essential (primary) hypertension; K21.9 Gastro-esophageal reflux disease without esophagitis; M19.90 Unspecified osteoarthritis, unspecified site; G43.909 Migraine, unspecified, not intractable, without status migrainosus; G40.909 Epilepsy, unspecified, not intractable, without status epilepticus; Z90.49 Acquired absence of other specified parts of digestive tract; Z79.899 Other long term (current) drug therapy
CPT/HCPCS: 36415; 70450; 71045; 72100; 72170; 74176; 80053; 81001; 84484; 85025; 93005